=== PATIENT | male | born 1950 | race Caucasian/White ===

== ENCOUNTER 2020-09-07 08:06 | Outpatient (REF) | payer MEDICARE, OTHER, SELFPAY ==
--- NOTE | 2020-09-07 | PFT_ITS ---
FLOWS: FEV1 40% of predicted at 1.30 L. FVC 75% of predicted at 3.32 L. FEV1 to FVC ratio of 0.39. Positive bronchodilator response. LUNG VOLUMES: Total lung capacity 87% of predicted at 6.13 L. Residual volume 127% of predicted at 3.13 L. Slow vital capacity 65% of predicted at 3 L. Expiratory reserve volume 76% of predicted at 0.98 L. Diffusion capacity is very severely decreased, diffusion capacity adjusts to being severely decreased after correction for alveolar ventilation. In comparison to pulmonary function test performed in March of 2014, FEV1 has decreased by 0.27 L; FVC has been without significant changes; total lung capacity has increased by 0.80 L; residual volume has increased by 0.74 L; slow vital capacity has been without significant changes; expiratory reserve volume has increased by 0.27 L; diffusion capacity is decreased by 5.31 mL/minute per mmHg. IMPRESSION: Severe to very severe obstructive ventilatory defect with positive bronchodilator response. Increased residual volume suggests air trapping. Decreased diffusion capacity suggests emphysema. MD MARCIN Morales/MODL / [id number] MTDD
== END 2020-09-07 08:07 | disposition home or self-care (01) ==
LOC: HO.RESP 08:06
PROVIDERS: PCP Internal Medicine; Visit Provider Internal Medicine
DX: J44.9 Chronic obstructive pulmonary disease, unspecified (principal); R06.00 Dyspnea, unspecified
CPT/HCPCS: 94060; 94727; 94729; 99211

== ENCOUNTER → 2020-09-10 08:41 | Outpatient (BNVA) | payer MEDICARE, OTHER, SELFPAY | PROVIDERS: PCP Internal Medicine; Visit Provider Internal Medicine | DX: J44.9 Chronic obstructive pulmonary disease, unspecified (principal); R09.02 Hypoxemia; Z79.899 Other long term (current) drug therapy; Z99.81 Dependence on supplemental oxygen | CPT/HCPCS: 99213 ==

== ENCOUNTER → 2020-10-09 10:33 | Outpatient (BNVA) | payer MEDICARE, OTHER, SELFPAY | PROVIDERS: PCP Internal Medicine; Visit Provider Internal Medicine | DX: J44.9 Chronic obstructive pulmonary disease, unspecified (principal); R09.02 Hypoxemia; Z99.81 Dependence on supplemental oxygen; Z79.899 Other long term (current) drug therapy | CPT/HCPCS: 99212 ==

== ENCOUNTER → 2021-02-12 13:18 | Outpatient (BNVA) | payer MEDICARE, OTHER, SELFPAY | PROVIDERS: PCP Internal Medicine; Visit Provider Internal Medicine | DX: J44.9 Chronic obstructive pulmonary disease, unspecified (principal); R09.02 Hypoxemia; Z99.81 Dependence on supplemental oxygen; Z87.891 Personal history of nicotine dependence; Z79.899 Other long term (current) drug therapy | CPT/HCPCS: 99212 ==

== ENCOUNTER → 2021-06-13 13:25 | Outpatient (BNVA) | payer MEDICARE, OTHER, SELFPAY | PROVIDERS: PCP Internal Medicine; Visit Provider Internal Medicine | DX: J44.9 Chronic obstructive pulmonary disease, unspecified (principal); R09.02 Hypoxemia; Z99.81 Dependence on supplemental oxygen; Z79.899 Other long term (current) drug therapy | CPT/HCPCS: 99212 ==

== ENCOUNTER → 2021-10-10 13:10 | Outpatient (BNVA) | payer MEDICARE, OTHER, SELFPAY | PROVIDERS: PCP Internal Medicine; Visit Provider Internal Medicine | DX: J44.9 Chronic obstructive pulmonary disease, unspecified (principal); R09.02 Hypoxemia; Z99.81 Dependence on supplemental oxygen; Z79.899 Other long term (current) drug therapy | CPT/HCPCS: 99212 ==

== ENCOUNTER → 2022-02-06 13:20 | Outpatient (BNVA) | payer MEDICARE, OTHER, SELFPAY | PROVIDERS: PCP Internal Medicine; Visit Provider Internal Medicine | DX: J44.9 Chronic obstructive pulmonary disease, unspecified (principal); R09.02 Hypoxemia; Z99.81 Dependence on supplemental oxygen | CPT/HCPCS: 99212 ==

== ENCOUNTER 2022-04-23 05:58 | Inpatient (IN) | payer MEDICARE, OTHER, SELFPAY ==
[2022-04-23] VITALS (11 sets, daily range): BP systolic 121–152; BP diastolic 60–89; PULSE 90–103; RESP 18–25; TEMP 36.7–37.1; O2SAT 89–97; BMI 25.1
--- NOTE | 2022-04-23 | ECG_ITS ---
Test Reason : SOB Blood Pressure : / mmHG Vent. Rate : 091 BPM Atrial Rate : 091 BPM P-R Int : 158 ms QRS Dur : 152 ms QT Int : 374 ms P-R-T Axes : 072 257 -06 degrees QTc Int : 460 ms Sinus rhythm with occasional Premature ventricular complexes Right bundle branch block Septal infarct (cited on or before 23-APR-2022) Abnormal ECG When compared with ECG of 23-APR-2022 06:22, Serial changes of Septal infarct Present Referred By: Edson Swanson Electronically Signed By:ZOFIA MINOR MD
--- NOTE | ~2022-04-23 | CT_ITS ---
EXAMINATION: CT CHEST WITHOUT CONTRAST CLINICAL INFORMATION: COPD exacerbation. COMPARISON: Chest radiograph 04/23/2022. CT from 03/28/2014. TECHNIQUE: Multidetector volumetric CT imaging of the chest was done. Axial MIP volume rendering provided. Sagittal and coronal reformatted images were obtained. This CT examination was performed using dose optimization techniques as appropriate, variously including the following: *Automated exposure control *Adjustment of mA and/or kV according to patient size (this includes techniques or standardized protocols for targeted exams where dose is matched to indication/reason for exam; i.e. extremities or head) *Use of iterative reconstruction technique DLP: 154 mGy-cm FINDINGS: INSTRUMENT OPERATOR: Unremarkable. LUNGS: The central airways are patent. Moderate centrilobular and paraseptal emphysema. Minimal scarring at the right apex noted. Bronchial wall thickening noted at the lung bases with minimal opacity dependently in the right lower lobe near the costophrenic angle. Minimal dependent left basilar atelectasis. MEDIASTINUM: Normal heart size. Coronary artery calcifications. No pericardial effusion. No mediastinal lymphadenopathy. PLEURA: There is no pleural effusion. No pleural mass or thickening. No pneumothorax. AXILLA: No lymphadenopathy. UPPER ABDOMEN: No acute abnormality. Calcifications throughout the pancreatic parenchyma, likely the sequela of chronic pancreatitis. OSSEOUS STRUCTURES: No acute or suspicious osseous abnormality. Degenerative changes noted throughout the spine. CT/CT chest wo con IMPRESSION: Moderate emphysema. Bronchial wall thickening noted at the lung bases which could be associated with acute or chronic bronchitis. There is minimal associated consolidation dependently in the right lower lobe. This is nonspecific. This could be atelectasis or pneumonia. Fleischner guidelines were followed.
--- NOTE | ~2022-04-23 | XR_ITS ---
EXAMINATION: XR CHEST CLINICAL INFORMATION: Shortness of breath COMPARISON: 12/29/2013 chest x-ray TECHNIQUE: 2 frontal views of the chest was obtained. FINDINGS: The lungs are symmetric expanded. Mild peribronchial thickening in bilateral lower lungs. No focal consolidation is otherwise seen. No effusion, edema or pneumothorax. Cardiomediastinal contours within normal limits. No acute osseous abnormality seen. XR/XR chest 1V IMPRESSION: No acute pulmonary disease. IMPRESSION: Mild peribronchial thickening in bilateral lower lungs. This could reflect infectious or inflammatory process. No dense consolidation is seen.
--- NOTE | 2022-04-23 06:09 | ECG_ITS ---
Test Reason : SOB Blood Pressure : / mmHG Vent. Rate : 095 BPM Atrial Rate : 095 BPM P-R Int : 156 ms QRS Dur : 152 ms QT Int : 372 ms P-R-T Axes : 077 260 003 degrees QTc Int : 467 ms Sinus rhythm with frequent Premature ventricular complexes Right bundle branch block Septal infarct , age undetermined Abnormal ECG When compared with ECG of 29-DEC-2013 05:03, Premature ventricular complexes are now Present QRS duration has increased Septal infarct is now Present ST now depressed in Anterior leads T wave inversion now evident in Anterior leads Referred By: Le Azar Electronically Signed By:ZOFIA MINOR MD
--- NOTE | 2022-04-23 06:28 | ED_ITS ---
HPI - SOB/Dyspnea General Chief Complaint: Dyspnea Stated Complaint: SOB, 85% PER EMS Time Seen by Provider: 04/23/22 06:08 Source: patient Mode of arrival: EMS History of Present Illness HPI Narrative: 72-year-old male with history of COPD and only uses oxygen as needed states that he had a cough and runny nose yesterday and then became increasingly short of breath throughout the night. He otherwise denies any fever, chills, chest amrk anthony n/palpitations. Patient received a DuoNeb and Solu-Medrol in route. Related Data Home Medications Medication Instructions Recorded Confirmed amlodipine 10 mg-benazepril 40 mg 1 cap PO DAILY 09/10/20 capsule atenolol 100 mg tablet 100 mg PO DAILY 09/10/20 atorvastatin 20 mg tablet 20 mg PO DAILY 09/10/20 sildenafil 50 mg tablet mg PO 09/10/20 Previous Rx's Medication Instructions Recorded fluticasone propionate 230 2 puff INHALATION BID #12 g 06/25/21 mcg-salmeterol 21 mcg/actuation HFA inhaler (Advair HFA) tiotropium bromide 2.5 2 puff INHALATION QAM #12 g 08/21/21 mcg/actuation mist for inhalation (Spiriva Respimat) ipratropium 20 mcg-albuterol 100 1 puff INHALATION QID 90 Days #4 g 11/07/21 mcg/actuation mist for inhalation (Combivent Respimat) Allergies Allergy/AdvReac Type Severity Reaction Status Date / Time No Known Allergies Allergy Mild NOT Verified 02/06/22 13:45 APPLICABLE Review of Systems Review of Systems: Pertinent positives and negatives as stated in HPI 10 point review of systems is otherwise negative. [facility] Past Medical History Source: nursing notes reviewed Medical History COPD (chronic obstructive pulmonary disease) Hypoxemia requiring supplemental oxygen Physical Exam Vital Signs: Vital Signs: Last Vital Signs Temp 98.7 F 04/23/22 06:05 Pulse 103 H 04/23/22 06:05 Resp 22 H 04/23/22 06:05 BP 152/89 H 04/23/22 06:05 Pulse Ox 90 L 04/23/22 06:05 Oxygen Flow Rate 6 04/23/22 06:05 BMI result Body Mass Index 25.1 VITAL SIGNS: Reviewed. GENERAL: Well developed, well nourished, in no acute distress. HEAD: Normocephalic/atraumatic EYES: PERRLA, EOMI EARS: Ext canals without abnormality OROPHARYNX: no oral lesions noted, posterior pharynx clear LUNGS: Decreased breath sounds, tachypnea, trace rhonchi throughout. SpO2<90> on 2 L CARDIOVASCULAR: Regular rate and rhythm without noted murmurs, no JVD but mild bilateral lower extremity 1+ pitting edema ABDOMEN: Soft, non-tender, non-distended with bowel sounds. MUSCULOSKELETAL: No tenderness, deformities, or effusions noted on gross inspection. EXTREMITIES: No cyanosis, clubbing or edema. SKIN: Inspection of the skin reveals no rashes NEUROLOGIC: Alert and oriented x 4. Strength and sensation to light touch were grossly intact x 4. Course Course Course Narrative: 72-year-old male with history and clinical presentation most consistent with COPD exacerbation and less likely CHF, pneumonia. Signed out to Dr Hamilton: f/u labs, swabs, CXR MDM - SOB/Dyspnea ECG Data Attestation: I personally reviewed and interpreted this ECG as follows: Prior ECG tracings: not available for review Interpretation: SR with frequent PVCs and RBBB, HR-95, no STEMI, ND/QTC are within normal limits Discharge Plan Discharge Clinical Impression: Shortness of breath Patient Disposition: Still a Patient Prescriptions: No Action Advair HFA 230-21 mcg/actuation HFA aerosol inhaler 2 puff inhalation BID Qty: 12 11RF Spiriva Respimat 2.5 mcg/actuation mist 2 puff inhalation QAM Qty: 12 3RF Combivent Respimat 20-100 mcg/actuation mist 1 puff inhalation QID 90 Days Qty: 4 3RF Rx Instructions: space evenly during waking hours amlodipine-benazepril 10-40 mg capsule 1 cap PO DAILY 0RF atenolol 100 mg tablet 100 mg PO DAILY 0RF atorvastatin 20 mg tablet 20 mg PO DAILY 0RF sildenafil 50 mg tablet PO 0RF
[2022-04-23] MEDS: Albuterol Sulfate (0.083%) 2.5 MG/3 ML VIAL.NEB 10 MG INHALE (06:33)
[2022-04-23 06:57] LABS: VBG Base Excess -1.9 mmol/L; VBG HCO3 22 mmol/L (22-26); VBG pCO2 37 mmHg; VBG pH 7.38 (7.32-7.43); VBG pO2 102 mmHg
[2022-04-23 06:57] LABS: MANUAL DIFF FLAG NO
[2022-04-23 06:58] LABS: Venous Blood Gas Refer to POC result
[2022-04-23 06:59] LABS: Basophils Absolute Auto 0.1 X10*3/uL (0.0-0.2); Basophils Percent Auto 0.3 % (0-2); Eosinophils Absolute Auto 0.1 X10*3/uL (0.0-0.4); Eosinophils Percent Auto 0.3 % (0-4); Hematocrit 41.9 % (42.0-52.0); Hemoglobin 13.9 g/dl (14.0-18.0); Imm Gran Pct Auto 0.6 % (0.0-0.4); Lymphocytes Absolute Auto 1.4 X10*3/uL (1.2-4.9); Lymphocytes Percent Auto 7.9 % (20-40); Mean Corpuscular HGB Conc 33.2 g/dl (31.0-36.0); Mean Corpuscular Hemoglobin 29.6 pg (27.0-33.0); Mean Corpuscular Volume 89.1 fL (80.0-98.0); Mean Platelet Volume 9.5 fL (9.4-12.4); Monocytes Absolute Auto 1.2 X10*3/uL (0.1-1.2); Monocytes Percent Auto 6.8 % (2-11); Neutrophils Absolute Auto 14.7 x10*3/uL (2.0-8.3); Neutrophils Percent Auto 84.1 % (45-73); Platelet Count 241 X10*3/uL (160-400); Red Cell Distribution Width 14.8 % (11.0-16.0); White Blood Count 17.5 X10*3/uL (4.8-10.8)
[2022-04-23 07:04] LABS: INTERNATIONAL NORM RATIO 1.1 (0.9-1.1); Prothrombin Time 12.6 SEC (9.9-13.0)
[2022-04-23 07:10] LABS: Lactic Acid 0.9 mmol/L (0.5-2.0)
[2022-04-23 07:14] LABS: COVID-19 Test Negative (Negative); IDNOW Serial# 16C4AD1C; Influenza A Negative (Negative); Influenza B2 Negative (Negative)
[2022-04-23 07:20] LABS: B Type Natriuretic Peptide 108 pg/mL (<100); Troponin-I High Sensitivity 3.6 ng/L (<3.5-35.0)
[2022-04-23 08:20] LABS: Alanine Aminotransferase 17 U/L (0-40); Albumin Level 4.1 g/dL (3.5-5.0); Alkaline Phosphatase 106 U/L (39-117); Anion Gap 13 (12-20); Aspartate Amino Transferase 15 U/L (5-37); Bilirubin Total 0.4 mg/dL (0.0-1.0); Blood Urea Nitrogen 12 mg/dL (9-16); Calcium 9.4 mg/dL (8.4-10.2); Carbon Dioxide 23 mmol/L (22-29); Chloride 108 mmol/L (96-108); Creatinine Clr Calc Pharmacy 99.9; Estimated Glomerular Filt Rate > 60; Glucose Random 135 mg/dL (60-115); Sodium 140 mmol/L (135-145); Total Protein 6.6 g/dL (6.5-8.0)
[2022-04-23] MEDS: Albuterol/Iprat 2.5/0.5MG 3 ML AMPUL.NEB INHALE ×4 (10:31→21:17)
--- NOTE | 2022-04-23 11:20 | PHA.MEDREC ---
Pharmacy Consult ? Medication Reconciliation Pharmacy has completed the medication reconciliation. Patient confirmed all medications. Natalie Hoyt, BerkleyD
[2022-04-23] MEDS: cefTRIAXone sodium 1 GM in 0.9 % Sodium Chloride 50 ML IV (11:34)
--- NOTE | 2022-04-23 11:36 | PM.IMHP ---
History of Present Illness Date of Service: 04/23/22 Chief Complaint: shortness of breath, cough, hypoxia, rhinorrhea This is a 72 yo M with a PMH of COPD, chronic respiratory failure with hypoxia (on 2L with exertion, no oxygen at rest), prior NE, who presents to [facility] today with complaints of respiratory symptoms of 1 day duration. The patient reports that 2 days prior to admission, he was in his usual state of health. One day [employer], he began having rhinorrhea and a non-productive cough. Later the same day, he noticed increased shortness of breath -- initially with exertion and subsequently even at rest. He planned on sleeping through the night and re-evaluating his condition the next day, however, over night his shortness of breath increased. He has a pulse ox at home and this showed a value of 85% with his 2L of oxygen on and so he decided to call EMS. He reported no sick contacts. He reports no anginal chest pain. He denies fevers or chills. He reports quitting smoking in his 50s. He reports being vaccinated for COVID with mRNA vaccine (including 2 boosters). He was given Solu-Medrol and DuoNebs in route to the ED. Upon arrival to the ED, he was found to be tachycardic and tachypneic. He had increased work of breathing. He was given an additional 1 hour long neb with basically no improvement in his respiratory status. The remainder of his work up revealed Leukocytosis of 17, CXR with mild peribronchial thickening in the b/l lower lung zones. His EKG showed showed multiple abnormalities (new from prior EKG, but last one was in 2013) with a negative HS trop-I. Despite the above treatment, the patient continued to hypoxic along with respiratory symptoms. He will be admitted for further treatment. Review of Systems Review of Systems: negative except HPI [facility] Medical History (Updated 04/23/22 @ 11:52 by Edson Swanson MD) COPD (chronic obstructive pulmonary disease) Hypoxemia requiring supplemental oxygen Myocardial infarct Pertinent family history: CAD / lung problems in father Surgical History (Updated 04/23/22 @ 11:43 by Edson Swanson MD) History of appendectomy Social History (Updated 04/23/22 @ 11:44 by Edson Swanson MD) Patient Tobacco Use Status: Former Tobacco user Use of substances other than those prescribed or required for medical reasons: No Advance Directives: No Meds Allergies Allergy/AdvReac Type Severity Reaction Status Date / Time No Known Allergies Allergy Mild NOT Verified 02/06/22 13:45 APPLICABLE Active Medications: Current Medications Acetaminophen (Acetaminophen 325 Mg Tablet) 650 mg PO Q6H PRN PRN Reason: Pain, Mild (Pain Scale 1-3) Albuterol Sulfate (Albuterol Sulfate (0.083%) 2.5 Mg/3 Ml Vial.Neb) 2.5 mg INHALE Q3H PRN PRN Reason: Shortness of Breath/Wheezing Albuterol/Ipratropium (Albuterol/Iprat 2.5/0.5mg 3 Ml Ampul.Neb) 3 ml INHALE RQ4H WHILE AWAKE ALBINA Doxycycline Hyclate (Doxycycline Hyclate 100 Mg Tablet) 100 mg PO Q12H [place]BINA Enoxaparin Sodium (Enoxaparin Sodium 40 Mg/0.4 Ml Syringe) 40 mg SUBCUT Q24H ALBINA Azithromycin 500 mg/ Sodium (Chloride) 250 mls @ 125 mls/hr IV ONCE ONE Stop: 04/23/22 12:22 Methylprednisolone Sodium Succinate (Methylprednisolone Sod Succ 40 Mg/Ml Vial) 40 mg IVPUSH Q8H [place]BINA Ondansetron HCl (Ondansetron Hcl 4 Mg/2 Ml Vial) 4 mg IVPUSH Q8H PRN PRN Reason: Nausea and Vomiting Pharmacy Consult (Consult Rx Perform Med Rec) 1 each MISCELLANE ONCE PRN PRN Reason: Consult order Sodium Chloride (0.9 % Sodium Chloride Flush 3 Ml Syringe) 3 ml IVFLUSH QSHIFT [facility] Home Medications Medication Instructions Recorded Confirmed Last Taken Type amlodipine 10 mg-benazepril 40 mg 1 cap PO BEDTIME 09/10/20 04/23/22 04/22/22 History capsule atenolol 100 mg tablet 100 mg PO BEDTIME 09/10/20 04/23/22 04/22/22 History atorvastatin 20 mg tablet 20 mg PO BEDTIME 09/10/20 04/23/22 04/22/22 History sildenafil 50 mg tablet 50 mg PO DAILY PRN 09/10/20 04/23/22 04/22/22 History ipratropium 20 mcg-albuterol 100 1 puff INHALATION QID PRN 04/23/22 04/23/22 04/22/22 History mcg/actuation mist for inhalation (Combivent Respimat) tiotropium bromide 2.5 2 puff INHALATION DAILY 04/23/22 04/23/22 04/22/22 History mcg/actuation mist for inhalation (Spiriva Respimat) Physical Exam Vital Signs and Narrative: Vital Signs: Last Vital Signs Temp 98.7 F 04/23/22 06:05 Pulse 94 04/23/22 10:32 Resp 20 04/23/22 10:32 BP 136/65 04/23/22 08:48 Pulse Ox 91 L 04/23/22 08:48 Oxygen Flow Rate 6 04/23/22 06:05 BMI result Body Mass Index 25.1 Const: Other: Constitutional - Awake and Alert, No apparent distress at rest; SpO2 87-90% on 4L Eyes - PERRLA, EOMI Cardiovascular - S1S2, RRR, No edema Respiratory - poor air entry bilaterally; no accessory muscle usage at rest Gastrointestinal - NT / ND; +BS; No rebound or guarding - No CVA tenderness Extremities - no calf tenderness bilaterally, no swelling Musculoskeletal - Normal inspection, normal ROM Skin - Warm/Dry Neurological - Alert & oriented x3, No focal deficit Psychological - Appropriate affect Results Labs CBC and Chem 7: 04/23/22 06:46 04/23/22 06:46 Labs: Laboratory Results - last 24 hr 04/23/22 04/23/22 04/23/22 06:46 06:46 06:46 MCV 89.1 MCH 29.6 MCHC 33.2 RDW 14.8 Plt Count 241 MPV 9.5 Immature Gran % (Auto) 0.6 H Neut % (Auto) 84.1 H Lymph % (Auto) 7.9 L Ritchie % (Auto) 6.8 Eos % (Auto) 0.3 Baso % (Auto) 0.3 Lymph # (Auto) 1.4 Ritchie # (Auto) 1.2 Eos # (Auto) 0.1 Baso # (Auto) 0.1 Abs Immat Gran (auto) 0.10 H Absolute Neuts (auto) 14.7 H Absolute Nucleated RBC 0.000 Nucleated RBC % (auto) 0.0 PT INR VBG pH VBG pCO2 VBG pO2 VBG HCO3 VBG O2 Saturation VBG Base Excess Anion Gap 13 Estim Creat Clear Calc 99.9 Estimated GFR > 60 Random Glucose 135 H Lactic Acid Calcium 9.4 Total Bilirubin 0.4 AST 15 ALT 17 Alkaline Phosphatase 106 Troponin I High Sens B-Natriuretic Peptide 108 H Total Protein 6.6 Albumin 4.1 COVID-19 (FAY) COVID-19 Clin Com Influenza Type A (ROMMEL) Influenza Type B (ROMMEL) Influenza A & B Note 04/23/22 04/23/22 04/23/22 06:46 06:46 06:46 MCV MCH MCHC RDW Plt Count MPV Immature Gran % (Auto) Neut % (Auto) Lymph % (Auto) Ritchie % (Auto) Eos % (Auto) Baso % (Auto) Lymph # (Auto) Ritchie # (Auto) Eos # (Auto) Baso # (Auto) Abs Immat Gran (auto) Absolute Neuts (auto) Absolute Nucleated RBC Nucleated RBC % (auto) PT 12.6 INR 1.1 VBG pH VBG pCO2 VBG pO2 VBG HCO3 VBG O2 Saturation VBG Base Excess Anion Gap Estim Creat Clear Calc Estimated GFR Random Glucose Lactic Acid Calcium Total Bilirubin AST ALT Alkaline Phosphatase Troponin I High Sens 3.6 B-Natriuretic Peptide Total Protein Albumin COVID-19 (FAY) COVID-BlazeMeter Clin Com Influenza Type A (ROMMEL) Negative Influenza Type B (ROMMEL) Negative Influenza A & B Note See Note 04/23/22 04/23/22 04/23/22 06:46 06:47 06:48 MCV MCH MCHC RDW Plt Count MPV Immature Gran % (Auto) Neut % (Auto) Lymph % (Auto) Ritchie % (Auto) Eos % (Auto) Baso % (Auto) Lymph # (Auto) Ritchie # (Auto) Eos # (Auto) Baso # (Auto) Abs Immat Gran (auto) Absolute Neuts (auto) Absolute Nucleated RBC Nucleated RBC % (auto) PT INR VBG pH 7.38 VBG pCO2 37 VBG pO2 102 VBG HCO3 22 VBG O2 Saturation 98.0 VBG Base Excess -1.9 Anion Gap Estim Creat Clear Calc Estimated GFR Random Glucose Lactic Acid 0.9 Calcium Total Bilirubin AST ALT Alkaline Phosphatase Troponin I High Sens B-Natriuretic Peptide Total Protein Albumin COVID-19 (FAY) Negative COVID-19 Clin Com See Note Influenza Type A (ROMMEL) Influenza Type B (ROMMEL) Influenza A & B Note Imaging Radiologist's Impressions: Impressions Chest X-Ray 04/23/22 07:00 IMPRESSION: No acute pulmonary disease. IMPRESSION: Mild peribronchial thickening in bilateral lower lungs. This could reflect infectious or inflammatory process. No dense consolidation is seen. Assessment and Plan (1) Acute respiratory failure with hypoxia: Status: Acute Plan This is a 72 yo M with a PMH of COPD, Chronic resp. failure with hypoxia (on 2L with exertion), prior NE without stenting who presents to the ED with complaints of rhinorrhea, non-productive cough, hypoxia and shortness of breath of 1 day duration. His work up is most consistent with acute exacerbation of COPD secondary to viral / bacterial bronchitis causing acute on chronic resp. failure with hypoxia. He will be admitted for further treatment. 1. Acute Respiratory failure with hypoxia 1a. Acute excerbation of COPD 1a. Possible viral / bacterial bronchitis Baseline O2 = 2L with exertion; currently requiring 4L at rest No evidence of pneumonia on chest imaging; DuoNebs scheduled + PRN; IV solu-medrol; supplemental O2 to keep saturation around 90% -- do not over oxygenate Empiric doxycycline. The patient does not have severe sepsis at this time 2. Abnormal EKG Previous EKG in system in 2013 -- so unclear if these are truly new changes HS trop-I negative x 1; will repeat now; repeat EKG as well keep telmonitor for now 3. CAD - s/p NE (without stenting) on BB + statin; not on asa EKG as above 4. HTN BP on the softer side -- hold antihypertensives today and re-eval tomorrow Full Code DVT pptx, Lovenox Endorses his as HCP In light of his acute on chronic respiratory failure + COPD exacerbation -- I anticipate a medically necessary inpatient hospitalization for treatment and monitoring of response which is likely to span 2 midnights. This cannot be completed in a less acute setting. Quality Stroke Does the patient have a stroke diagnosis?: No VTE Prior VTE?: No VTE Risk Level:: Medical - moderate - high VTE Device Contraindication: Treatment Not Indicated VTE Drug Contraindication: N/A - Med Ordered
[2022-04-23] MEDS: Enoxaparin Sodium 40 MG/0.4 ML SYRINGE SUBCUT (12:45)
[2022-04-23] MEDS: Azithromycin 500 MG in 0.9 % Sodium Chloride 250 ML 125 MG IV (12:46)
[2022-04-23] MEDS: methylPREDNISolone Sod Succ 40 MG/ML VIAL IVPUSH ×2 (12:46→19:45)
[2022-04-23 13:00] LABS: Troponin-I High Sensitivity 3.6 ng/L (<3.5-35.0)
--- NOTE | 2022-04-23 19:38 | PC.NURSE ---
pt antibiotics were infused, and taken down when this RN assumed care of pt
[2022-04-23] MEDS: Atorvastatin Calcium 20 MG TABLET PO (19:45)
--- NOTE | 2022-04-23 22:18 | MHC.CM.PN ---
IMM 04/23. A&Ox4. No HCP. HCP reviewed, completed and signed. Copies given. Uploaded into [facility] and [email or web address]. HCP/ Zelda Stauffer ([phone]). Vax/boosted/Moderna (12/23/20, 01/21/21, 09/24/21, 02/26/22). Lives w . Uses Oxygen@2L prn. No other DME/services. [place] of 21 years service. Uses [facility] pharmacy only. Not vet connected. D/C plan: Home without services. Pt to arrange transportation home. CM to follow for d/c needs.
[2022-04-24] VITALS (11 sets, daily range): BP systolic 124–150; BP diastolic 66–81; PULSE 10–110; RESP 16–20; TEMP 36.3–37.1; O2SAT 91–98; BMI 24.2
[2022-04-24] MEDS: methylPREDNISolone Sod Succ 40 MG/ML VIAL IVPUSH ×3 (05:01→21:05)
[2022-04-24 06:52] LABS: Hematocrit 41.5 % (42.0-52.0); Hemoglobin 13.7 g/dl (14.0-18.0); Mean Corpuscular Hemoglobin 29.7 pg (27.0-33.0); Mean Platelet Volume 10.2 fL (9.4-12.4); Platelet Count 245 X10*3/uL (160-400); Red Blood Count 4.61 X10*6/uL (4.60-5.80); Red Cell Distribution Width 15.1 % (11.0-16.0); White Blood Count 23.4 X10*3/uL (4.8-10.8)
--- NOTE | 2022-04-24 07:00 | CA_ITS ---
Transthoracic Echocardiogram Patient (Last, First, Middle): Sergio Stauffer, Gender: Male Date of : 1950 Age: 72 Procedure Date: 04/24/2022 Procedure Type: Transthoracic Echocardiogram Location: [facility] [place] Height: 177.8 cm Weight: 76.2 kg BSA: 1.94 m2 Heart Rate: bpm BP: 129 / 71 mmHg Derrick Engineer: TO/YR Referring MD: Edson Swanson MD Salesperson Books: Nael Sylvester MD Symptoms: abnormal EKG with evidence of septal infarct Study Quality: Technically Difficult ECG Rhythm: Sinus Conclusions: - 1. Normal LV systolic function with grade 1 diastolic dysfunction 2. Mildly dilated left atrium 3. Normal cardiac valvular Doppler 4. Moderately elevated right ventricular systolic pressure 5. No gross pericardial effusion Findings Left Ventricle Normal left ventricular size, thickness, and systolic function. The visually estimated ejection fraction is between 60-65%. Spectral Doppler is indicative of an impaired relaxation filling pattern. E/E prime ratio is <8, consistent with normal filling pressures. Right Ventricle Mildly increased right ventricular cavity size. There is normal right ventricular systolic function. Atria The left atrium is mildly dilated. There is lipomatous hypertrophy of the interatrial septum. There is no evidence of interatrial shunt. The right atrium is normal in size. Aortic Valve There is mild calcification of the aortic valve. There is mild thickening of the aortic valve. There is no aortic valve stenosis. There is no aortic valve regurgitation. Mitral Valve There is mild anterior and posterior mitral leaflet thickening. There is trace mitral valve regurgitation. There is no mitral valve stenosis. Pulmonic Valve The pulmonic valve was not well visualized. Tricuspid Valve Likely normal tricuspid valve structure and function. There is mild tricuspid valve regurgitation. The right ventricular systolic pressure is normal. Normal right atrial pressure. Moderate pulmonary hypertension is present. Great Vessels All visible segments of the aorta are normal in size. The pulmonary artery was not well visualized. Venous The inferior vena cava is normal in size and collapses greater than 50% with inspiration. Pericardium/Pleural There is no evidence of pericardial effusion. Prior Study Comparison no previous study in the last 5 years for comparison Measurements 2D Linear Measurements IVSd: 1.26 0.6-0.9/0.6-1.0 cm LVIDd: 5.02 3.9-5.3/4.2-5.9 cm LVIDd Index: 2.59 2.4-3.2/2.2-3.1 cm/m2 LVIDs: 3.40 2.0-3.6 cm LVPWd: 0.96 0.7-1.1 cm LA Diam: 2.90 2.7-3.8/3.0-4.0 cm LAIDs Index: 1.49 1.5-2.3 cm/m2 LV Mass: 263.28 67-162/88-224 g LV Mass Index: 135.71 43-95/49-115 g/m2 LVOT Diam: 2.30 3.0+(-)1.3 cm 2D Systolic Function EF 4C: 70.70 >55% EF 2C: 60.60 >55% EF BiP: 65.00 >55% Mitral Valve MV Pk E: 0.83 MV PK A: 1.39 MV Decel Time: 139.00 E/A: 0.60 E'Lateral: 11.60 E'Medial: 9.25 E/E' Med: 8.90 E/E' Lat: 7.10 PHT: 41.00 MVA PHT: 5.37 Decel [place]: 5.95 Aortic Valve AoV Pk Joey: 1.52 AoV Mn Joey: 0.97 AoV VTI: 0.26 AoV Pk Grad: 9.00 Aov Mn Grad: 4.00 AMBER Cont.VTI: 3.37 LVOT LVOT Pk Joey: 1.18 LVOT Mn Joey: 0.74 LVOT VTI: 0.21 LVOT Pk Grad: 6.00 LVOT Mn Grad: 3.00 LVOT Diam: 2.30 LVOT Area: 4.15 Diastolic Function MV Pk E: 0.83 MV Pk A: 1.39 E/A: 0.60 E'Medial: 9.25 E/E' Med: 8.90 E' Laterial: 11.60 E/E' Lat: 7.10 Right Ventricle TAPSE (mm): 22.10 TVS' Joey: 12.70 Tricuspid Valve TR Pk Joey: 3.39 TR Pk Grad: 46.00 RA Press: 3.00 RVSP: 49.00 Great Vessels Aorta Sinus of Valsalva: 3.98 2.0-3.[address] [place]: 3.07 1.7-3.4 cm Ao Asc: 3.40 2.1-3.4 cm Updated in Other Vendor System with Status of Final Nael Sylvester MD electronically signed on 04/24/2022 5:02:17 PM with status of Final
[2022-04-24 07:05] LABS: Anion Gap 13 (12-20); Blood Urea Nitrogen 12 mg/dL (9-16); Calcium 9.7 mg/dL (8.4-10.2); Carbon Dioxide 24 mmol/L (22-29); Chloride 108 mmol/L (96-108); Creatinine Clr Calc Pharmacy 107.7; Estimated Glomerular Filt Rate > 60; Glucose Random 134 mg/dL (60-115); Sodium 141 mmol/L (135-145)
[2022-04-24] MEDS: 0.9 % Sodium Chloride Flush 3 ML SYRINGE IVFLUSH ×2 (07:41→21:07)
[2022-04-24] MEDS: Albuterol/Iprat 2.5/0.5MG 3 ML AMPUL.NEB INHALE ×4 (08:12→20:19)
[2022-04-24] MEDS: Enoxaparin Sodium 40 MG/0.4 ML SYRINGE SUBCUT (11:32)
--- NOTE | 2022-04-24 12:17 | HO.PM.IMPN ---
Subjective Subjective Date of Service: 04/24/22 Interval History: seen and examined this morning follow up for COPD exacerbation/SOB, still reporting some sob. no significant cough no fever, chills, or recent sick contacts; denies chest pain Review of Systems Review of Systems: Yes all other systems are reviewed and are negative Constitutional Constitutional: Denies chills and Denies fever(s) Cardiovascular Cardiovascular: Denies chest pain, Denies palpitations and Reports dyspnea Respiratory Respiratory: Reports dyspnea Gastrointestinal Gastrointestinal: Denies abdominal pain, Denies nausea and Denies vomiting Endocrine Endocrine: Denies palpitations Physical Exam Vital Signs: Vital Signs: Last Vital Signs Temp 97.4 F 04/24/22 11:18 Pulse 110 H 04/24/22 11:21 Resp 20 04/24/22 11:21 BP 150/81 H 04/24/22 11:18 Pulse Ox 92 04/24/22 11:18 Oxygen Flow Rate 6 04/23/22 06:05 BMI result Body Mass Index 24.2 Const: General: cooperative, comfortable, alert and awake Nutritional Appearance: average body habitus Orientation/consciousness: patient oriented x3 Eyes: Pupils: Equal, round and reactive pupils present EOM: EOMs intact bilaterally Resp: Effort & Inspection: normal respiratory effort Auscultation: clear to auscultation bilaterally, no rales, no wheezes and diminished lung sounds Cardio: Rate: regular rate Heart sounds: S1 normal heart sound present and S2 normal heart sound present GI: Inspection: No distended Palpation (GI): nontender Neuro: General: patient oriented x3 Cranial nerves: Yes Equal, round and reactive pupils present Extrem: General: Yes no pedal edema Objective Data Active Medications Acetaminophen (Acetaminophen 325 Mg Tablet) 650 mg PO Q6H PRN PRN Reason: Pain, Mild (Pain Scale 1-3) Albuterol Sulfate (Albuterol Sulfate (0.083%) 2.5 Mg/3 Ml Vial.Neb) 2.5 mg INHALE Q3H PRN PRN Reason: Shortness of Breath/Wheezing Albuterol/Ipratropium (Albuterol/Iprat 2.5/0.5mg 3 Ml Ampul.Neb) 3 ml INHALE RQ4H WHILE AWAKE [facility] Last Admin: 04/24/22 11:17 Dose: 3 ml Documented by: HUDSON Atorvastatin Calcium (Atorvastatin Calcium 20 Mg Tablet) 20 mg PO BEDTIME [facility] Last Admin: 04/23/22 19:45 Dose: 20 mg Documented by: WHIT Doxycycline Hyclate (Doxycycline Hyclate 100 Mg Tablet) 100 mg PO Q12H [facility] Last Admin: 04/24/22 07:41 Dose: 100 mg Documented by: SURESH Enoxaparin Sodium (Enoxaparin Sodium 40 Mg/0.4 Ml Syringe) 40 mg SUBCUT Q24H [facility] Last Admin: 04/24/22 11:32 Dose: 40 mg Documented by: SURESH Methylprednisolone Sodium Succinate (Methylprednisolone Sod Succ 40 Mg/Ml Vial) 40 mg IVPUSH Q8H [facility] Last Admin: 04/24/22 11:29 Dose: 40 mg Documented by: SURESH Ondansetron HCl (Ondansetron Hcl 4 Mg/2 Ml Vial) 4 mg IVPUSH Q8H PRN PRN Reason: Nausea and Vomiting Pharmacy Consult (Consult Rx Perform Med Rec) 1 each MISCELLANE ONCE PRN PRN Reason: Consult order Sodium Chloride (0.9 % Sodium Chloride Flush 3 Ml Syringe) 3 ml IVFLUSH QSHIFT [facility] Last Admin: 04/24/22 07:41 Dose: 3 ml Documented by: SURESH Labs CBC & Chem 7: 04/24/22 06:12 04/24/22 06:12 Labs: Laboratory Results - last 24 hr 04/23/22 04/24/22 04/24/22 12:33 06:12 06:12 MCV 90.0 MCH 29.7 MCHC 33.0 RDW 15.1 Plt Count 245 MPV 10.2 Absolute Nucleated RBC 0.000 Nucleated RBC % (auto) 0.0 Anion Gap 13 Estim Creat Clear Calc 107.7 Estimated GFR > 60 Random Glucose 134 H Calcium 9.7 Troponin I High Sens 3.6 Microbiology Microbiology Results: Microbiology 04/23/22 06:46 Blood Culture - Preliminary Blood - Venous No growth after 24 hours. 04/23/22 06:46 Blood Culture - Preliminary Blood - Venous No growth after 24 hours. Assessment and Plan (1) Acute respiratory failure with hypoxia: Status: Acute Plan This is a 72 yo M with a PMH of COPD, Chronic resp. failure with hypoxia (on 2L with exertion), prior VT without stenting who presents to the ED with complaints of rhinorrhea, non-productive cough, hypoxia and shortness of breath of 1 day duration. His work up is most consistent with acute exacerbation of COPD secondary to viral / bacterial bronchitis causing acute on chronic resp. failure with hypoxia. He will be admitted for further treatment. 1. Acute Respiratory failure with hypoxia 1a. Acute excerbation of COPD 1a. Possible viral / bacterial bronchitis Baseline O2 = 2L with exertion; currently requiring 4L at rest No evidence of pneumonia on chest imaging; DuoNebs scheduled + PRN; IV solu-medrol; supplemental O2 to keep saturation around 90% -- do not over oxygenate Empiric doxycycline. The patient does not have severe sepsis at this time 2. Abnormal EKG Previous EKG in system in 2013 - so unclear if these are truly new changes HS trop-I negative x 2 tele monitoring ECHO pending 3. CAD - s/p VT (without stenting) on BB + statin; not on asa EKG as above 4. HTN BP on the softer side - amlodipine/benazepril on hold for now will follow bp closely Full Code DVT pptx, Lovenox Endorses his as HCP Attending: dr. moore Patient requires ongoing inpatient hospitalization due to acute COPD exacerbation and pending echocardiogram Quality Stroke Does the patient have a stroke diagnosis?: No VTE Prior VTE?: No VTE Risk Level:: Medical - moderate - high VTE Device Contraindication: Treatment Not Indicated VTE Drug Contraindication: N/A - Med Ordered
[2022-04-24] MEDS: Atorvastatin Calcium 20 MG TABLET PO (21:05)
[2022-04-24] MEDS: atenoloL 100 MG TABLET PO (21:05)
[2022-04-25] VITALS (7 sets, daily range): BP systolic 131–150; BP diastolic 74–90; PULSE 73–96; RESP 16–20; TEMP 36.1–37.1; O2SAT 91–98
[2022-04-25] MEDS: methylPREDNISolone Sod Succ 40 MG/ML VIAL IVPUSH ×3 (03:41→19:39)
[2022-04-25] MEDS: Albuterol/Iprat 2.5/0.5MG 3 ML AMPUL.NEB INHALE ×3 (08:16→15:17)
[2022-04-25] MEDS: 0.9 % Sodium Chloride Flush 3 ML SYRINGE IVFLUSH ×3 (08:42→19:39)
--- NOTE | 2022-04-25 10:57 | P.CONPL_ITS ---
History of Present Illness History of Present Illness Consult date: 04/25/22 Reason for consult: cough, COPD and hypoxemia Chief complaint: SOB, 85% PER EMS Narrative: This 72 years old gentleman is a well known patient to me she and is followed by me as outpatient. He does have history of long-standing chronic obstructive pulmonary disease. He is doing well at home on his usual inhalers including Advair and Spiriva with Combivent Respimat p.r.n. He has also been on oxygen 2 L/minute. He has past history of smoking and is the being, screened by annual lung scan , at [facility]. This time he has history of nasal congestion with postnasal discharge and increased cough for the last 3-4 days. He presented to the emergency room on 04/23, because of increased respiratory distress and requirement of increase oxygen. Even on O2 3 L/minute his O2 sat was in mid 80s. He denies fever chills or chest pain. Now since in the hospital he is being treated with doxycycline as antibiotic, empirically, and is also on IV Solu-Medrol and DuoNeb updrafts. Since yesterday he is starting to feel better and now he is able to walk around with O2 3 L/minute. 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 Being in the hospital he is getting somewhat anxious , about his 's condition. Review of Systems Review of Systems: Yes all other systems are reviewed and are negative Constitutional: Constitutional: Reports body ache(s), Reports chills, Reports fatigue and Reports fever(s) Eyes: Eyes: Reports no additional eye complaints and Reports itchy eyes ENT: Reports nasal congestion and Reports post nasal drip Cardiovascular: Cardiovascular: Denies chest pain, Denies irregular heart rh ythm, Denies leg edema and Reports dyspnea on exertion Respiratory: Respiratory: Reports as per HPI and Reports dyspnea on exertion Gastrointestinal: Gastrointestinal: Reports no additional gastrointestinal complaints Genitourinary: Genitourinary: Reports no additional male genitourinary complaints Neurologic: Reports system reviewed and no additional complaints, except as documented Psychiatric: Psychiatric: Reports anxiety, Reports depression, Reports difficulty concentrating, Reports irritability and Reports mood swings Endocrine: Endocrine: Reports no additional endocrine complaints and Reports fatigue Hematologic/Lymphatic: Hematologic/Lymphatic: Reports no additional hematologic/lymphatic complaints Allergic/Immunologic: Allergic/Immunologic: Reports no additional allergic/im munologic complaints and Reports itchy eyes PMFSH Past Medical History Medical History (Updated 04/25/22 @ 11:08 by Michael Mcqueen MD) Acute bronchitis and bronchiolitis COPD (chronic obstructive pulmonary disease) Hypoxemia requiring supplemental oxygen Myocardial infarct Surgical History Surgical History History of appendectomy Social History Social History Household Members: Spouse Housing: House Do you presently have visiting nurse or other home services: No Patient Tobacco Use Status: Former Tobacco user service: Yes Current occupational status: retired [employer] Allergies Allergy/AdvReac Type Severity Reaction Status Date / Time No Known Allergies Allergy Mild NOT Verified 02/06/22 13:45 APPLICABLE Active Medications: Current Medications Acetaminophen (Acetaminophen 325 Mg Tablet) 650 mg PO Q6H PRN PRN Reason: Pain, Mild (Pain Scale 1-3) Albuterol Sulfate (Albuterol Sulfate (0.083%) 2.5 Mg/3 Ml Vial.Neb) 2.5 mg INHALE Q3H PRN PRN Reason: Shortness of Breath/Wheezing Albuterol/Ipratropium (Albuterol/Iprat 2.5/0.5mg 3 Ml Ampul.Neb) 3 ml INHALE RQ4H WHILE AWAKE [facility] Last Admin: 04/25/22 08:16 Dose: 3 ml Documented by: Atenolol (Atenolol 100 Mg Tablet) 100 mg PO BEDTIME [facility]; Protocol Last Admin: 04/24/22 21:05 Dose: 100 mg Documented by: Atorvastatin Calcium (Atorvastatin Calcium 20 Mg Tablet) 20 mg PO BEDTIME [facility] Last Admin: 04/24/22 21:05 Dose: 20 mg Documented by: Doxycycline Hyclate (Doxycycline Hyclate 100 Mg Tablet) 100 mg PO Q12H [facility] Last Admin: 04/25/22 08:42 Dose: 100 mg Documented by: Enoxaparin Sodium (Enoxaparin Sodium 40 Mg/0.4 Ml Syringe) 40 mg SUBCUT Q24H [facility] Last Admin: 04/24/22 11:32 Dose: 40 mg Documented by: Methylprednisolone Sodium Succinate (Methylprednisolone Sod Succ 40 Mg/Ml Vial) 40 mg IVPUSH Q8H [facility] Last Admin: 04/25/22 03:41 Dose: 40 mg Documented by: Ondansetron HCl (Ondansetron Hcl 4 Mg/2 Ml Vial) 4 mg IVPUSH Q8H PRN PRN Reason: Nausea and Vomiting Pharmacy Consult (Consult Rx Perform Med Rec) 1 each MISCELLANE ONCE PRN PRN Reason: Consult order Sodium Chloride (0.9 % Sodium Chloride Flush 3 Ml Syringe) 3 ml IVFLUSH QSHIFT [facility] Last Admin: 04/25/22 08:42 Dose: 3 ml Documented by: Home Medications Medication Instructions Recorded Confirmed Last Taken Type amlodipine 10 mg-benazepril 40 mg 1 cap PO BEDTIME 09/10/20 04/23/22 04/22/22 History capsule atenolol 100 mg tablet 100 mg PO BEDTIME 09/10/20 04/23/22 04/22/22 History atorvastatin 20 mg tablet 20 mg PO BEDTIME 09/10/20 04/23/22 04/22/22 History sildenafil 50 mg tablet 50 mg PO DAILY PRN 09/10/20 04/23/22 04/22/22 History ipratropium 20 mcg-albuterol 100 1 puff INHALATION QID PRN 04/23/22 04/23/22 04/22/22 History mcg/actuation mist for inhalation (Combivent Respimat) tiotropium bromide 2.5 2 puff INHALATION DAILY 04/23/22 04/23/22 04/22/22 History mcg/actuation mist for inhalation (Spiriva Respimat) Physical Exam Vital Signs: Vital Signs: Last Vital Signs Temp 98.0 F 04/25/22 07:53 Pulse 75 04/25/22 08:19 Resp 16 04/25/22 08:19 BP 132/82 04/25/22 07:53 Pulse Ox 92 04/25/22 07:53 Oxygen Flow Rate 6 04/23/22 06:05 BMI result Body Mass Index 24.2 Const: General: comfortable (But moderately short of breath on activity), no acute distress, alert and awake Orientation/consciousness: patient oriented x3 HEENT: Head: Yes normal to inspection General nose exam: No nasal polyps present and No nasal discharge present Face and sinus: Yes sinuses nontender Mouth: oropharynx normal Throat: Yes posterior oropharynx normal Eyes: General: appearance normal, both eyes and all related structures Neck: Neck: Yes normal visual inspection, Yes no lymphadenopathy, Yes trachea midline and Yes no JVD Thyroid: Thyroid normal Chest: Chest palpation & inspection: normal inspection of the chest, normal palpation of entire chest wall and no tenderness Resp: Other: Percussion note is resonant, breath sounds are distant with prolonged expiratory phase. He has prominent inspiratory crepitations over both lower lobes especially on the left side. Cardio: Palpation: normal PMI Rate: regular rate Rhythm: regular rhythm Heart sounds: no gallops and no murmurs Peripheral pulses: Peripheral pulses 2+ throughout GI: Palpation (GI): Soft to palpation, nontender, No hepatosplenomegaly present and no masses Auscultation: normal bowel sounds Back/Spine/Pelvis: Thoracic/Lumbar Spine: thoracic and lumbar spine normal to inspection Skin: General skin exam: no rashes or lesions noted Neuro: General: patient oriented x3 and no focal motor deficits Cranial nerves: Yes CN's II-XII intact bilaterally Extrem: General: Yes normal to inspection, Yes no clubbing, cyanosis or edema and Yes no calf tenderness Psych: Speech and movement: Normal speech and movement present Results Laboratory Findings CBC and BMP: 04/24/22 06:12 04/24/22 06:12 ABG, PT/INR, D-dimer: PT/INR, D-dimer PT 12.6 SEC (9.9-13.0) 04/23/22 06:46 INR 1.1 (0.9-1.1) 04/23/22 06:46 Abnormal lab findings: Abnormal Labs 04/23/22 04/23/22 04/23/22 06:46 06:46 06:46 WBC 17.5 H Hgb 13.9 L Hct 41.9 L Immature Gran % (Auto) 0.6 H Neut % (Auto) 84.1 H Lymph % (Auto) 7.9 L Abs Immat Gran (auto) 0.10 H Absolute Neuts (auto) 14.7 H Random Glucose 135 H B-Natriuretic Peptide 108 H 04/24/22 04/24/22 06:12 06:12 WBC 23.4 H Hgb 13.7 L Hct 41.5 L Immature Gran % (Auto) Neut % (Auto) Lymph % (Auto) Abs Immat Gran (auto) Absolute Neuts (auto) Random Glucose 134 H B-Natriuretic Peptide Microbiology: Microbiology 04/23/22 06:46 Blood - Venous Blood Culture - Preliminary No growth after 48 hours. 04/23/22 06:46 Blood - Venous Blood Culture - Preliminary No growth after 48 hours. Diagnostic Findings Chest x-ray: report reviewed and image reviewed Assessment and Plan (1) Acute exacerbation of chronic obstructive airways disease: Status: Acute (2) Acute respiratory failure with hypoxia: Status: Acute (3) Acute bronchitis and bronchiolitis: Status: Acute Plan This gentleman does have chronic obstructive pulmonary disease, He has been fairly stable on his regular regimen, and O2 2 L/minute. Now he presents with acute exacerbation probably due to nonspecific respiratory infection. Coarse crepitations over both lower lobes especially on the left side raise question of bronchiolitis/bronchiectasis. I think we should get a CT scan of the chest to make sure he does not have pneumonia. Recc . CT scan of the chest. Continue IV Solu-Medrol 40 mg q.8 hours. Continue IV doxycycline which will be changed to oral on his discharge. O2 3-4 L/minute to maintain O2 sat above 90%. DuoNeb updrafts Q 6 hours while awake . At the time of discharge , he can resume using his Advair and Spiriva as before. I discussed with the patient in detail and try to reassure him. Thank you very much for asthma to see this patient. Procedures Date of Service Date of Service: 04/25/22
--- NOTE | 2022-04-25 11:39 | P.PNIM_ITS ---
Subjective Subjective Date of Service: 04/25/22 Interval History: seen and examined this morning follow up for dyspnea, COPD still reporting dysnpea with exertion no significant cough Review of Systems Review of Systems: Yes all other systems are reviewed and are negative Constitutional Constitutional: Denies chills and Denies fever(s) Cardiovascular Cardiovascular: Denies chest pain, Denies palpitations, Reports dyspnea and Reports dyspnea on exertion Respiratory Respiratory: Denies cough, Denies pain on inspiration, Denies pain with cough, Reports dyspnea and Reports dyspnea on exertion Gastrointestinal Gastrointestinal: Denies abdominal pain, Denies diarrhea, Denies nausea and Denies vomiting Endocrine Endocrine: Denies palpitations Physical Exam Vital Signs: Vital Signs: Last Vital Signs Temp 98.0 F 04/25/22 07:53 Pulse 75 04/25/22 08:19 Resp 16 04/25/22 08:19 BP 132/82 04/25/22 07:53 Pulse Ox 92 04/25/22 07:53 Oxygen Flow Rate 6 04/23/22 06:05 BMI result Body Mass Index 24.2 Const: General: cooperative, comfortable, alert and awake Nutritional Appearance: average body habitus Orientation/consciousness: patient oriented x3 Eyes: Pupils: Equal, round and reactive pupils present EOM: EOMs intact bilaterally Resp: Other: able to take bigger breaths today Effort & Inspection: normal respiratory effort and able to speak in complete sentences Auscultation: diminished lung sounds Cardio: Rate: regular rate Heart sounds: S1 normal heart sound present and S2 normal heart sound present GI: Inspection: No distended Palpation (GI): nontender Neuro: General: patient oriented x3 Cranial nerves: Yes Equal, round and reactive pupils present Extrem: General: Yes no pedal edema Objective Data Active Medications Acetaminophen (Acetaminophen 325 Mg Tablet) 650 mg PO Q6H PRN PRN Reason: Pain, Mild (Pain Scale 1-3) Albuterol Sulfate (Albuterol Sulfate (0.083%) 2.5 Mg/3 Ml Vial.Neb) 2.5 mg INHALE Q3H PRN PRN Reason: Shortness of Breath/Wheezing Albuterol/Ipratropium (Albuterol/Iprat 2.5/0.5mg 3 Ml Ampul.Neb) 3 ml INHALE RQ4H WHILE AWAKE [facility] Last Admin: 04/25/22 08:16 Dose: 3 ml Documented by: HUDSON Atenolol (Atenolol 100 Mg Tablet) 100 mg PO BEDTIME [facility]; Protocol Last Admin: 04/24/22 21:05 Dose: 100 mg Documented by: JOEY Atorvastatin Calcium (Atorvastatin Calcium 20 Mg Tablet) 20 mg PO BEDTIME [facility] Last Admin: 04/24/22 21:05 Dose: 20 mg Documented by: JOEY Doxycycline Hyclate (Doxycycline Hyclate 100 Mg Tablet) 100 mg PO Q12H [facility] Last Admin: 04/25/22 08:42 Dose: 100 mg Documented by: SURESH Enoxaparin Sodium (Enoxaparin Sodium 40 Mg/0.4 Ml Syringe) 40 mg SUBCUT Q24H [facility] Last Admin: 04/24/22 11:32 Dose: 40 mg Documented by: SURESH Methylprednisolone Sodium Succinate (Methylprednisolone Sod Succ 40 Mg/Ml Vial) 40 mg IVPUSH Q8H [facility] Last Admin: 04/25/22 03:41 Dose: 40 mg Documented by: JOEY Ondansetron HCl (Ondansetron Hcl 4 Mg/2 Ml Vial) 4 mg IVPUSH Q8H PRN PRN Reason: Nausea and Vomiting Pharmacy Consult (Consult Rx Perform Med Rec) 1 each MISCELLANE ONCE PRN PRN Reason: Consult order Sodium Chloride (0.9 % Sodium Chloride Flush 3 Ml Syringe) 3 ml IVFLUSH QSHIFT [facility] Last Admin: 04/25/22 08:42 Dose: 3 ml Documented by: SURESH Labs CBC & Chem 7: 04/24/22 06:12 04/24/22 06:12 Microbiology Microbiology Results: Microbiology 04/23/22 06:46 Blood Culture - Preliminary Blood - Venous No growth after 48 hours. 04/23/22 06:46 Blood Culture - Preliminary Blood - Venous No growth after 48 hours. Assessment and Plan (1) Acute bronchitis and bronchiolitis: Status: Acute Plan This is a 72 yo M with a PMH of COPD, Chronic resp. failure with hypoxia (on 2L with exertion), prior HI without stenting who presents to the ED with complaints of rhinorrhea, non-productive cough, hypoxia and shortness of breath of 1 day duration. His work up is most consistent with acute exacerbation of COPD secondary to viral / bacterial bronchitis causing acute on chronic resp. failure with hypoxia. He will be admitted for further treatment. 1. Acute Respiratory failure with hypoxia 1a. Acute excerbation of COPD 1a. Possible viral / bacterial bronchitis Baseline O2 = 2L with exertion; currently requiring 4L at rest No evidence of pneumonia on chest imaging DuoNebs scheduled + PRN; IV solu-medrol; supplemental O2 to keep saturation around 90% -- do not over oxygenate Empiric doxycycline. The patient does not have severe sepsis at this time Seen by pulmonology - rec chest CT 2. Abnormal EKG Previous EKG in system in 2013 - so unclear if these are truly new changes HS trop-I negative x 2 tele monitoring ECHO with no WMA 3. CAD - s/p HI (without stenting) on BB + statin; not on asa EKG as above 4. HTN BP on the softer side - amlodipine/benazepril on hold for now continue atenolol will follow bp closely Leukocytosis r/t steroids not sepsis Full Code DVT pptx, Lovenox Endorses his as HCP Attending: dr. moore Patient requires ongoing inpatient hospitalization due to acute COPD exacerbation and further workup for dyspnea Quality Stroke Does the patient have a stroke diagnosis?: No VTE Prior VTE?: No VTE Risk Level:: Medical - moderate - high VTE Device Contraindication: Treatment Not Indicated VTE Drug Contraindication: N/A - Med Ordered
--- NOTE | 2022-04-25 12:22 | MHC.CM.PN ---
PER ROUNDS PT EXPECTED TO BE DCD SAT DC PLAN REMAINS HOME NO SERVICES
[2022-04-25] MEDS: Enoxaparin Sodium 40 MG/0.4 ML SYRINGE SUBCUT (13:05)
[2022-04-25] MEDS: Atorvastatin Calcium 20 MG TABLET PO (19:39)
[2022-04-25] MEDS: atenoloL 100 MG TABLET PO (19:39)
[2022-04-25] MEDS: Milk of Magnesia 30 ML ORAL.SUSP 15 ML PO (19:52)
[2022-04-25] MEDS: polyethylene glycoL 3350 17 GM POWD.PACK PO (19:53)
--- NOTE | 2022-04-25 22:53 | MHC.PIE ---
p; pt c/o constipation, pt reports last bm on thursday i; dr andres notified; new order milk of mag now. miralax daily e; will cont to tor
[2022-04-26 03:56] VITALS: BP 139/84; PULSE 68; RESP 18; TEMP 36.6; O2SAT 93
[2022-04-26] MEDS: methylPREDNISolone Sod Succ 40 MG/ML VIAL IVPUSH ×2 (04:00→12:12)
[2022-04-26 08:00] VITALS: BP 139/85; PULSE 63; RESP 20; TEMP 36.8; O2SAT 94
[2022-04-26 08:21] VITALS: PULSE 63; RESP 20; O2SAT 94
[2022-04-26] MEDS: Albuterol/Iprat 2.5/0.5MG 3 ML AMPUL.NEB INHALE ×2 (08:21→11:34)
[2022-04-26] MEDS: polyethylene glycoL 3350 17 GM POWD.PACK PO (08:30)
[2022-04-26] MEDS: 0.9 % Sodium Chloride Flush 3 ML SYRINGE IVFLUSH (08:31)
--- NOTE | 2022-04-26 10:55 | P.PNPL_ITS ---
Subjective Subjective Date of Service: 04/26/22 Principal diagnosis: copd excarbation Interval history: This gentleman is feeling a little better as far as breathing is concerned. No fever chills or chest pain. Cough is less and mostly dry. He is somewhat anxious about going home. Ox he is doing okay with O2 3 L/minute. Objective Data Labs CBC & Chem 7: 04/24/22 06:12 04/24/22 06:[address] scan - chest: Attestation: I personally reviewed and interpreted this imaging study as follows: (No evidence of any mass, also no evidence of consolidation. Bronchial thickening, in lower lobes consistent with chronic bronchitis) My impression: Microbiology Microbiology Results: Microbiology 04/23/22 06:46 Blood - Venous Blood Culture - Preliminary No growth after 48 hours. 04/23/22 06:46 Blood - Venous Blood Culture - Preliminary No growth after 48 hours. Physical Exam Vital Signs: Vital Signs: Last Vital Signs Temp 98.3 F 04/26/22 08:00 Pulse 63 04/26/22 08:21 Resp 20 04/26/22 08:21 BP 139/85 04/26/22 08:00 Pulse Ox 94 04/26/22 08:00 Oxygen Flow Rate 6 04/23/22 06:05 BMI result Body Mass Index 24.2 Procedures Date of Service Date of Service: 04/26/22 Assessment and Plan Assessment and plan (1) Acute bronchitis and bronchiolitis: Status: Acute (2) Acute exacerbation of chronic obstructive airways disease: Status: Acute (3) Hypoxemia requiring supplemental oxygen: Status: Acute Plan He is getting better as far as acute exacerbation is concerned. Recc > may change IV Solu-Medrol to prednisone 40 mg a day and wean down by 10 mg every week. May change doxycycline to p.o. and complete the course for tend. O2 3 L/minute and during physical activity he may increased up to 4 L/minute. Patient may resume his previous inhalers, including Advair HFA 230- 212 puffs b.i.d. Spiriva Respimat 2.52 puffs daily and Combivent Respimat 1 inhalation Q 4-6 hours p.r.n. Patient may be discharged home, and he should be seen in the office in 7-10 days for follow-up. Time Spent With Patient Time: Total time spent is greater than 50% in coordination of care (as documented) at patient's floor/unit and/or counseling patient: Progress Note: Quality Stroke Does the patient have a stroke diagnosis?: No
[2022-04-26 11:35] VITALS: PULSE 73; RESP 20; O2SAT 93
[2022-04-26 12:00] VITALS: BP 136/72; PULSE 80; RESP 20; TEMP 37.2; O2SAT 92
[2022-04-26] MEDS: Enoxaparin Sodium 40 MG/0.4 ML SYRINGE SUBCUT (12:12)
--- NOTE | 2022-04-26 12:28 | P.DS_ITS ---
DS: Providers Provider Date of Service: 04/26/22 Date of admission: 04/23/22 11:31 Date of discharge: 04/26/22 Primary care physician: Clive Harris MD Consults: 04/25/22 09:07 Consult to Pulmonology Routine Consulting Provider: Michael Mcqueen Reason for consultation: copd Has provider been notified: No 04/26/22 09:04 Consult to Cardiology Routine Consulting Provider: Nael Sylvester Reason for consultation: dyspnea Has provider been notified: No Attending physician on discharge: Anne-Marie Benito Discharging clinician: Ana Luisa Steven DS: Diagnosis Discharge Diagnosis (1) Acute bronchitis and bronchiolitis: Status: Acute (2) Acute exacerbation of chronic obstructive airways disease: Status: Acute (3) Hypoxemia requiring supplemental oxygen: Status: Acute DS: Summary Hospital Course Hospital Course: From H&P on day of admission This is a 72 yo M with a PMH of COPD, chronic respiratory failure with hypoxia (on 2L with exertion, no oxygen at rest), prior NC, who presents to [facility] ED today with complaints of respiratory symptoms of 1 day duration. The patient reports that 2 days prior to admission, he was in his usual state of health. One day [employer], he began having rhinorrhea and a non- productive cough. Later the same day, he noticed increased shortness of breath -- initially with exertion and subsequently even at rest. He planned on sleeping through the night and re-evaluating his condition the next day, however, over night his shortness of breath increased. He has a pulse ox at home and this showed a value of 85% with his 2L of oxygen on and so he decided to call EMS. He reported no sick contacts. He reports no anginal chest pain. He denies fevers or chills. He reports quitting smoking in his 50s. He reports being vaccinated for COVID with mRNA vaccine (including 2 boosters). He was given Solu-Medrol and DuoNebs in route to the ED. Upon arrival to the ED, he was found to be tachycardic and tachypneic. He had increased work of breathing. He was given an additional 1 hour long neb with basically no improvem ent in his respiratory status. The remainder of his work up revealed Leukocytosis of 17, CXR with mild peribronchial thickening in the b/l lower lung zones. His EKG showed showed multiple abnormalities (new from prior EKG, but last one was in 2013) with a negative HS trop-I. Despite the above treatment, the patient continued to hypoxic along with respiratory symptoms. He will be admitted for further treatment. Acute Respiratory failure with hypoxia secondary to Acute excerbation of COPD and Possible viral / bacterial bronchitis. He was started on IV Solu-Medrol, DuoNeb scheduled and as needed as well as IV doxycycline. He was seen in consultation by pulmonology who agreed with management and recommended chest CT. Chest CT showed atelectasis versus pneumonia in the right lower lobe, pulmonology felt these findings represented chronic bronchitis. Patient's breathing gradually improved and he is stable for discharge home. He will be discharged home with long prednisone taper starting with 40 mg daily for 1 week and decreasing by 10 mg each week. He will complete a course of doxycycline. His home oxygen will be increased to 3 liters/minute at rest and may increase up to 4 liters/minute for physical activity. He should resume his previous inhalers and should call to schedule follow-up appointment with Dr. Mcqueen in 7- 10 days. Due to dyspnea and abnormal EKG, patient underwent echocardiogram which showed evidence of diastolic dysfunction but no wall motion abnormality was seen. Cardiac enzymes were negative x2. He was seen in consultation by Cardiology who did not feel that he had any component of CHF contributing to his dyspnea. No further workup is required at this time This was discussed with the patient in detail and he is in agreement with the above plan. Time Spent with Patient Time attestation: Total time spent providing and/or coordinating discharge services: Discharge coordination time: Greater than 30 minutes Quality: Safe Use of Opioids Does Pt have an Active Cancer Diagnosis on the Problem List?: No Quality: Stroke Does the patient have a stroke diagnosis?: No Physical Exam Vital Signs: Vital Signs: Last Vital Signs Temp 98.9 F 04/26/22 12:00 Pulse 80 04/26/22 12:00 Resp 20 04/26/22 12:00 BP 136/72 04/26/22 12:00 Pulse Ox 92 04/26/22 12:00 Oxygen Flow Rate 6 04/23/22 06:05 BMI result Body Mass Index 24.2 DS: Data Data Completed and Pending Labs on day of discharge: Preliminary micro results at discharge 04/23/22 06:46 Blood Culture - Preliminary Blood - Venous No growth after 48 hours. 04/23/22 06:46 Blood Culture - Preliminary Blood - Venous No growth after 48 hours. Discharge Plan Discharge Patient Disposition: Home, Self-Care Discharge Diagnosis: Acute COPD exacerbation Referrals: Michael Mcqueen MD [Physician] - 1 Week Clive Harris MD [Primary Care Provider] - 1 Week Discharge Medications: New prednisone 10 mg tablet See Taper mg PO DAILY Qty: 70 0RF Taper: Prednisone 40 mg daily for 7 Days and 0 Hour 30 mg daily for 7 Days and 0 Hour 20 mg daily for 7 Days and 0 Hour 10 mg daily for 7 Days and 0 Hour doxycycline hyclate 100 mg tablet 100 mg PO BID 3 Days Qty: 6 0RF Continued Advair HFA 230-21 mcg/actuation HFA aerosol inhaler 2 puff inhalation BID Qty: 12 11RF Spiriva Respimat 2.5 mcg/actuation mist 2 puff inhalation DAILY 0RF Combivent Respimat 20-100 mcg/actuation mist 1 puff inhalation QID PRN (Reason: Wheezing) 0RF Rx Instructions: space evenly during waking hours amlodipine-benazepril 10-40 mg capsule 1 cap PO BEDTIME 0RF atenolol 100 mg tablet 100 mg PO BEDTIME 0RF atorvastatin 20 mg tablet 20 mg PO BEDTIME 0RF sildenafil 50 mg tablet 50 mg PO DAILY PRN (Reason: Sexual Activity) 0RF Discharge Orders: Discharge Order (Routine); Ordered 04/26/22 Ordered By: Ana Luisa Steven Activity on Discharge: As tolerated Stand Alone Forms: Patient Portal Discharge page Care Plan Goals: see below Health Concerns: COPD exacerbation Plan of Treatment: Take prednisone taper as prescribed, 40 mg daily for 7 days and decrease by 10 mg each week until prednisone is gone Complete course of antibiotics (doxycycline) Call to schedule follow-up appointment with Dr. Mcqueen in the next 7-10 days Continue using baseline inhalers as prescribed Pulmonology recommended using 3 L of oxygen per minute and may increase to 4L/minute with physical activity Return to the ED with any worsening of shortnesss of breath Assessment: see above Patient Instructions: COPD (Chronic Obstructive Pulmonary Disease) (ED) Discharge Date/Time: 04/26/22 16:20
--- NOTE | 2022-04-26 12:54 | MHC.CM.PN ---
PT WILL DC HOME TODAY WITH NO SERVICES FAMILY TO TRANSPORT
--- NOTE | 2022-04-26 13:38 | PM.CNCAR ---
History of Present Illness History of Present Illness Date of Service: 04/26/22 Requesting physician: Ana Luisa Steven Consult reason: other (Possible CHF) Chief complaint: SOB, 85% PER EMS Narrative: I was consulted to see Sergio in cardiology consultation today because of his respiratory failure and minimally elevated BNP. Sergio is 72-year-old male with prior history of COPD with chronic respiratory failure on oxygen therapy at home. Patient presented with significantly worsening shortness of breath and wheezing. As a workup. The BNP perform which was minimally elevated. No prior history of congestive heart failure. He has no other cardiac history no history of CAD, but has past medical history of hypertension hyperlipidemia. Patient echocardiogram which showed normal LV systolic function without any significant left-sided it pressures but was noted to have moderate RV systolic pressure elevation. Cardiology consult was sought because of question of congestive heart failure. Review of Systems Constitutional: Constitutional: Reports no additional constitutional complaints Eyes: Eyes: Reports no additional eye complaints Cardiovascular: Cardiovascular: Denies chest pain, Denies leg edema, Denies lightheadedness, Denies Loss of Consciousness, Denies palpitations and Reports dyspnea on exertion Respiratory: Respiratory: Reports excessive phlegm production, Reports dyspnea on exertion and Reports wheezing Gastrointestinal: Gastrointestinal: Reports no additional gastrointestinal complaints Genitourinary: Genitourinary: Reports no additional male genitourinary complaints Musculoskeletal: Musculoskeletal: Reports no additional musculoskeletal complaints Integumentary/Breasts: Skin/Breast: Reports system reviewed and no additional complaints, except as docu Neurologic: Reports system reviewed and no additional complaints, except as documented Psychiatric: Psychiatric: Reports no additional psychiatric complaints Endocrine: Endocrine: Reports no additional endocrine complaints and Denies palpitations Allergic/Immunologic: Allergic/Immunologic: Reports no additional allergic/immunologic complaints and Reports wheezing PMFSH Past Medical History Medical History Acute bronchitis and bronchiolitis COPD (chronic obstructive pulmonary disease) Hypoxemia requiring supplemental oxygen Myocardial infarct Surgical History Surgical History History of appendectomy Social History Social History Household Members: Spouse Housing: House Do you presently have visiting nurse or other home services: No Patient Tobacco Use Status: Former Tobacco user service: Yes Current occupational status: retired Meds Allergies Allergy/AdvReac Type Severity Reaction Status Date / Time No Known Allergies Allergy Mild NOT Verified 02/06/22 13:45 APPLICABLE Active Medications: Current Medications Acetaminophen (Acetaminophen 325 Mg Tablet) 650 mg PO Q6H PRN PRN Reason: Pain, Mild (Pain Scale 1-3) Albuterol Sulfate (Albuterol Sulfate (0.083%) 2.5 Mg/3 Ml Vial.Neb) 2.5 mg INHALE Q3H PRN PRN Reason: Shortness of Breath/Wheezing Albuterol/Ipratropium (Albuterol/Iprat 2.5/0.5mg 3 Ml Ampul.Neb) 3 ml INHALE RQ4H WHILE AWAKE [facility] Last Admin: 04/26/22 11:34 Dose: 3 ml Documented by: Atenolol (Atenolol 100 Mg Tablet) 100 mg PO BEDTIME [facility]; Protocol Last Admin: 04/25/22 19:39 Dose: 100 mg Documented by: Atorvastatin Calcium (Atorvastatin Calcium 20 Mg Tablet) 20 mg PO BEDTIME [facility] Last Admin: 04/25/22 19:39 Dose: 20 mg Documented by: Doxycycline Hyclate (Doxycycline Hyclate 100 Mg Tablet) 100 mg PO Q12H [facility] Last Admin: 04/26/22 08:30 Dose: 100 mg Documented by: Enoxaparin Sodium (Enoxaparin Sodium 40 Mg/0.4 Ml Syringe) 40 mg SUBCUT Q24H [facility] Last Admin: 04/26/22 12:12 Dose: 40 mg Documented by: Methylprednisolone Sodium Succinate (Methylprednisolone Sod Succ 40 Mg/Ml Vial) 40 mg IVPUSH Q12H [facility] Last Admin: 04/26/22 12:12 Dose: 40 mg Documented by: Ondansetron HCl (Ondansetron Hcl 4 Mg/2 Ml Vial) 4 mg IVPUSH Q8H PRN PRN Reason: Nausea and Vomiting Pharmacy Consult (Consult Rx Perform Med Rec) 1 each MISCELLANE ONCE PRN PRN Reason: Consult order Polyethylene Glycol (Polyethylene Glycol 3350 17 Gm Powd.Pack) 17 gm PO DAILY [facility] Last Admin: 04/26/22 08:30 Dose: 17 gm Documented by: Sodium Chloride (0.9 % Sodium Chloride Flush 3 Ml Syringe) 3 ml IVFLUSH QSHIFT [facility] Last Admin: 04/26/22 08:31 Dose: 3 ml Documented by: Home Medications Medication Instructions Recorded Confirmed Last Taken Type amlodipine 10 mg-benazepril 40 mg 1 cap PO BEDTIME 09/10/20 04/23/22 04/22/22 History capsule atenolol 100 mg tablet 100 mg PO BEDTIME 09/10/20 04/23/22 04/22/22 History atorvastatin 20 mg tablet 20 mg PO BEDTIME 09/10/20 04/23/22 04/22/22 History sildenafil 50 mg tablet 50 mg PO DAILY PRN 09/10/20 04/23/22 04/22/22 History ipratropium 20 mcg-albuterol 100 1 puff INHALATION QID PRN 04/23/22 04/23/22 04/22/22 History mcg/actuation mist for inhalation (Combivent Respimat) tiotropium bromide 2.5 2 puff INHALATION DAILY 04/23/22 04/23/22 04/22/22 History mcg/actuation mist for inhalation (Spiriva Respimat) Physical Exam Vital Signs: Vital Signs: Last Vital Signs Temp 98.9 F 04/26/22 12:00 Pulse 80 04/26/22 12:00 Resp 20 04/26/22 12:00 BP 136/72 04/26/22 12:00 Pulse Ox 92 04/26/22 12:00 Oxygen Flow Rate 6 04/23/22 06:05 BMI result Body Mass Index 24.2 Const: General: cooperative, comfortable, no acute distress, alert, awake and anxious Nutritional Appearance: average body habitus Orientation/consciousness: patient oriented x3 Limitations: no limitations HEENT: Head: Yes normocephalic and Yes atraumatic Neck: Neck: Yes trachea midline, Yes supple and Yes no JVD Resp: Effort & Inspection: normal respiratory effort Auscultation: wheezes scattered wheezes and diminished lung sounds Cardio: Jugular venous distension: no JVD Palpation: normal PMI Rate: regular rate Rhythm: regular rhythm Heart sounds: S1 normal heart sound present, S2 normal heart sound present, no click, no gallops, no murmurs and no rubs GI: Auscultation: normal bowel sounds Skin: General skin exam: no rashes or lesions noted Neuro: General: patient oriented x3 and no focal motor deficits Extrem: General: Yes no clubbing, cyanosis or edema Objective Labs and Meds Result diagrams: 04/24/22 06:12 04/24/22 06:12 Imaging Radiologist's impression: Impressions Chest CT 04/25/22 11:46 IMPRESSION: Moderate emphysema. Bronchial wall thickening noted at the lung bases which could be associated with acute or chronic bronchitis. There is minimal associated consolidation dependently in the right lower lobe. This is nonspecific. This could be atelectasis or pneumonia. Fleischner guidelines were followed. Assessment and Plan (1) Elevated brain natriuretic peptide (BNP) level: Status: Acute Minimally elevated BNP in this man with significant advanced COPD and respiratory failure present with acute exacerbation. He does have moderately elevated right ventricular systolic pressure. No overt signs of heart failure. Most likely cause for elevated BNP COPD exacerbation with RV strain. I do not think he has any evidence of congestive heart failure. At this point time no cardiac therapy is recommended. Continue to optimize his pulmonary function and pulmonary treatment. May need long-term oxygen therapy to reduce RV strain. Consider pulmonary rehabilitation as outpatient. No further cardiac workup is indicated. Will sign of the case. Thank you for allowing us to partake in his care Procedures Date of Service Date of Service: 04/26/22
== END 2022-04-26 16:20 | disposition home or self-care (01) | DRG 190 ==
LOC: HO.ED 10:33 → HO.EDOVER 11:45 → HO.IMC 23:13
PROVIDERS: Student in an Organized Health Care Education/Training Program; Admitting Provider Family Medicine; Emergency Provider Emergency Medicine; PCP Internal Medicine; Visit Provider Physician Assistant Medical
DX: J44.0 Chronic obstructive pulmonary disease with (acute) lower respiratory infection (principal); J96.21 Acute and chronic respiratory failure with hypoxia; I25.2 Old myocardial infarction; J44.1 Chronic obstructive pulmonary disease with (acute) exacerbation; J20.9 Acute bronchitis, unspecified; I25.10 Atherosclerotic heart disease of native coronary artery without angina pectoris; Z20.822 Contact with and (suspected) exposure to COVID-19; Z87.891 Personal history of nicotine dependence; Z79.51 Long term (current) use of inhaled steroids; Z79.899 Other long term (current) drug therapy
CPT/HCPCS: 36415; 71045; 71250; 80048; 80053; 82803; 83605; 83880; 84484; 85025; 85027; 85610; 87040; 87502; 87635; 93005; 93306; 94640; 94644; 96365; 96367; 99285; J0456; J0696; J1650; J2920

== ENCOUNTER → 2022-05-07 14:58 | Outpatient (BNVA) | payer MEDICARE, OTHER, SELFPAY | PROVIDERS: PCP Internal Medicine; Visit Provider Internal Medicine | DX: J44.1 Chronic obstructive pulmonary disease with (acute) exacerbation (principal); R09.02 Hypoxemia; Z79.899 Other long term (current) drug therapy; Z99.81 Dependence on supplemental oxygen | CPT/HCPCS: 99212 ==

== ENCOUNTER → 2022-06-03 14:44 | Outpatient (BNVA) | payer MEDICARE, OTHER, SELFPAY | PROVIDERS: PCP Internal Medicine; Visit Provider Internal Medicine | DX: J44.9 Chronic obstructive pulmonary disease, unspecified (principal); R09.02 Hypoxemia; Z99.81 Dependence on supplemental oxygen; Z79.899 Other long term (current) drug therapy | CPT/HCPCS: 99212 ==

== ENCOUNTER → 2022-08-07 13:15 | Outpatient (BNVA) | payer MEDICARE, OTHER, SELFPAY | PROVIDERS: PCP Internal Medicine; Visit Provider Internal Medicine | DX: J44.9 Chronic obstructive pulmonary disease, unspecified (principal); R09.02 Hypoxemia; Z99.81 Dependence on supplemental oxygen | CPT/HCPCS: 99212 ==

== ENCOUNTER → 2023-02-19 13:18 | Outpatient (BNVA) | payer MEDICARE, OTHER, SELFPAY | PROVIDERS: PCP Internal Medicine; Visit Provider Internal Medicine | DX: J44.9 Chronic obstructive pulmonary disease, unspecified (principal); Z99.81 Dependence on supplemental oxygen | CPT/HCPCS: 99212 ==

== ENCOUNTER 2023-08-18 13:24 | Outpatient (AMB) | payer MEDICARE, OTHER, SELFPAY ==
[2023-08-18 13:41] VITALS: BP 96/60; PULSE 70; O2SAT 98; BMI 22.8
--- NOTE | 2023-08-18 13:41 | A.OFFVIS_ITS ---
Intake Vital Signs 08/18/23 13:41 Height 5 ft 10 in Weight 158 lb 11.725 oz BMI 22.8 BP 96/60 Blood Pressure Location Lt brachial Position Sitting Pulse 70 Pulse Source Pulse Oximeter Pulse Oximetry (%) 98 Oxygen Delivery Method Nasal Cannula Oxygen Flow Rate 2 Intake Visit Reasons: COPD Intake Note: pt is here for follow up and states he is doing well Business Services Officer Required: No Allergies No Known Allergies Allergy (Mild, Verified 08/18/23 14:04) NOT APPLICABLE Medication List - Last Reconciled 08/18/23 by Michael Mcqueen MD aspirin (Adult Low Dose Aspirin) 81 mg PO DAILY atenolol 100 mg PO BEDTIME atorvastatin 20 mg PO BEDTIME fluticasone propion-salmeterol 230-21 mcg/actuation (Advair HFA) 2 puffs inhalation BID ipratropium-albuterol 20-100 mcg/actuation (Combivent Respimat) 1 puff inhalation QID lisinopril-hydrochlorothiazide 20-25 mg 1 tab PO DAILY sildenafil 50 mg PO DAILY PRN tiotropium bromide 2.5 mcg/actuation (Spiriva Respimat) 2 puffs inhalation QAM Do you need a note to return to daycare/school/sports/work: No HPI COPD HPI Details 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 LUCKILY THERE HAS BEEN NO ACUTE INFECTION OR ACUTE. EXACERBATION DURING THE PAST 6 MONTHS HE HAS CUT DOWN THE USE OF OXYGEN 2 L/MINUTE ONLY 2 L/MT AT NIGHT AND P.R.N. WHEN HE IS DOING ANY PHYSICAL WORK OR GOES OUTSIDE. AT HOME HE CAN BE RESTING WITHOUT OXYGEN . HE DENIES ANY COUGH OR WHEEZING. HE DOES GET SHORT OF BREATH ON WALKING UP HILL OR CLIMBING STAIRS. CONTINUES TO USE ADVAIR HFA 230-21 2 PUFFS B.I.D. AND COMBIVENT RESPIMAT 1 PUFF Q.I.D. [facility] Medical History Acute bronchitis and bronchiolitis Myocardial infarct Hypoxemia requiring supplemental oxygen COPD (chronic obstructive pulmonary disease) Surgical History History of appendectomy Social History Household Members: Spouse Housing: House Do you presently have visiting nurse or other home services: No Patient Tobacco Use Status: Former Tobacco user service: Yes Current occupational status: retired Review of Systems Const All systems reviewed & are unremarkable except as noted in HPI and below Eyes Reports no additional complaints ENT Reports no additional complaints Card Denies chest pain, Denies irregular heart rhythm and Reports leg edema (Since on prednisone) Resp Reports as per HPI GI Reports no additional complaints Reports no additional complaints Musc Reports no additional complaints Skin/Breast Reports system reviewed and no additional complaints, except as documented Neuro Reports no additional complaints Psych Reports no additional complaints Physical Exam Vital Signs: Last Vital Signs Pulse 70 08/18/23 13:41 BP 96/60 08/18/23 13:41 Pulse Ox 98 08/18/23 13:41 Oxygen Delivery Method Nasal Cannula 08/18/23 13:41 Oxygen Flow Rate 2 08/18/23 13:41 BMI result Body Mass Index 22.8 Const General: comfortable, no acute distress, alert and awake Orientation/consciousness: patient oriented x3 HEENT Head: Yes normal to inspection General nose exam: No nasal polyps present and No nasal discharge present Face and sinus: Yes sinuses nontender Mouth: oropharynx normal Throat: Yes posterior oropharynx normal Eyes General: appearance normal, both eyes and all related structures Neck Neck: Yes normal visual inspection, Yes no lymphadenopathy, Yes trachea midline and Yes no JVD Thyroid: Thyroid normal Chest Chest palpation & inspection: normal inspection of the chest, normal palpation of entire chest wall and no tenderness Resp Other: Percussion note is hyper-resonant, breath sounds are equal on both sides slightly prolonged expiratory phase. No audible wheezes ,or crepitations . Cardio Palpation: normal PMI Rate: regular rate Rhythm: regular rhythm Heart sounds: no gallops and no murmurs Peripheral pulses: Peripheral pulses 2+ throughout GI Palpation (GI): Soft to palpation, nontender, No hepatosplenomegaly present and no masses Auscultation: normal bowel sounds Back/Spine/Pelvis Thoracic/Lumbar Spine: thoracic and lumbar spine normal to inspection Skin General skin exam: no rashes or lesions noted Neuro General: patient oriented x3 and no focal motor deficits Cranial nerves: Yes CN's II-XII intact bilaterally Extrem General: Yes normal to inspection, Yes no calf tenderness and Yes edema (ONLY TRACE OF EDEMA AROUND THE ANKLES , compressive socks are helping ) Psych Appearance: grossly normal and well kempt Speech and movement: Normal speech and movement present Assessment & Plan Assessment & Plan (1) COPD (chronic obstructive pulmonary disease): Comment: COPD SEEMS TO BE QUITE STABLE. HE IS ADVISED TO CONTINUE HIS REGULAR MAINTENANCE REGIMEN,as follows : TX: ADVAIR HFA 230 / 21 2 INHALATION B.I.D., SPIRIVA RESPIMAT 2 INHALATION DAILY, COMBIVENT RESPIMAT 1 INHALATION Q.6 HOURS P.R.N.. Code(s): J44.9 - Chronic obstructive pulmonary disease, unspecified (2) Hypoxemia requiring supplemental oxygen: Comment: HYPOXEMIA IS CORRECTED WITH OXYGEN SUPPLEMENTATION, ADVISED TO CONTINUE USING O2 2 L/MINUTE AT NIGHT, AND 3 L/MINUTE WITH THE PORTABLE UNIT FOR ANY PHYSICAL WORK OR GOING OUTDOORS. Code(s): R09.02 - Hypoxemia; Z99.81 - Dependence on supplemental oxygen Coding Level of Care Code Est Pt Level 3 (59264) Diagnoses COPD (chronic obstructive pulmonary disease) J44.9 Hypoxemia requiring supplemental oxygen R09.02; Z99.81
== END 2023-08-18 13:59 | disposition home or self-care (01) ==
PROVIDERS: PCP Internal Medicine; Visit Provider Internal Medicine
DX: J44.9 Chronic obstructive pulmonary disease, unspecified (principal); R09.02 Hypoxemia; Z99.81 Dependence on supplemental oxygen
CPT/HCPCS: 99213

== ENCOUNTER → 2023-08-18 13:24 | Outpatient (BNVA) | payer MEDICARE, OTHER, SELFPAY | PROVIDERS: Visit Provider Internal Medicine | DX: J44.9 Chronic obstructive pulmonary disease, unspecified (principal); R09.02 Hypoxemia; Z99.81 Dependence on supplemental oxygen | CPT/HCPCS: 99212 ==

== ENCOUNTER 2024-02-16 13:04 | Outpatient (AMB) | payer MEDICARE, OTHER, SELFPAY ==
--- NOTE | 2024-02-16 13:19 | A.OFFVIS_ITS ---
Intake Vital Signs 02/16/24 13:20 Height 5 ft 10 in Weight 173 lb 1.006 oz BMI 24.8 BP 122/68 Blood Pressure Location Lt brachial Position Sitting Pulse 78 Pulse Source Pulse Oximeter Pulse Oximetry (%) 96 Oxygen Delivery Method Nasal Cannula Oxygen Flow Rate 3 Intake Visit Reasons: COPD Intake Note: pt is here for follow up and stated he was dx with stomach cancer in September and is taking a cancer pill every day. He also states he is short of breath, which he knows could be part of cancer tx but he finds himself panting even on 3 liters, and he checks his o2 and it is in mid 90's but he is short of breath. 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: No Allergies No Known Allergies Allergy (Mild, Verified 02/16/24 13:44) NOT APPLICABLE Medication List - Last Reconciled 02/16/24 by Michael Mcqueen MD atenolol 100 mg PO BEDTIME atorvastatin 20 mg PO BEDTIME fluticasone propion-salmeterol 230-21 mcg/actuation (Advair HFA) 2 puffs inhalation BID imatinib 400 mg PO DAILY ipratropium-albuterol 20-100 mcg/actuation (Combivent Respimat) 1 puff inhalation QID lisinopril-hydrochlorothiazide 20-25 mg 1 tab PO DAILY omeprazole 20 mg PO BID sildenafil 50 mg PO DAILY PRN tiotropium bromide 2.5 mcg/actuation (Spiriva Respimat) 2 puffs inhalation QAM Do you need a note to return to daycare/school/sports/work: No HPI COPD HPI Details Sergio 74 years old very pleasant gentleman , comes today after 6 months for his routine pulmonary follow-up. During the interim. He has been diagnosed to have carcinoma of the stomach, which is now being treated with chemotherapy . His appetite is improved and he has put on some weight. Initially he was worked up for anemia and now his hemoglobin has remained stable. He is using his oxygen 24 hours a day. When he does some physical work he feels more short of breath than usual. And has a feeling that he can not take deep breaths. However his O2 sat remains in the normal range. He is using all his inhalers well, denies any cough or wheezing attacks. [facility] Medical History (Updated 02/16/24 @ 13:50 by Michael Mcqueen MD) Carcinoma of stomach Acute bronchitis and bronchiolitis Myocardial infarct Hypoxemia requiring supplemental oxygen COPD (chronic obstructive pulmonary disease) Surgical History History of appendectomy Social History Household Members: Spouse Housing: House Do you presently have visiting nurse or other home services: No Comment: [facility] [place] Patient Tobacco Use Status: Former Tobacco user service: Yes Current occupational status: retired Review of Systems Const All systems reviewed & are unremarkable except as noted in HPI and below Eyes Reports no additional complaints ENT Reports no additional complaints Card Denies chest pain, Denies irregular heart rhythm and Reports leg edema (Since on prednisone) Resp Reports as per HPI GI Reports no additional complaints Reports no additional complaints Musc Reports no additional complaints Skin/Breast Reports system reviewed and no additional complaints, except as documented Neuro Reports no additional complaints Psych Reports no additional complaints Physical Exam Vital Signs: Last Vital Signs Pulse 78 02/16/24 13:20 BP 122/68 02/16/24 13:20 Pulse Ox 96 02/16/24 13:20 Oxygen Delivery Method Nasal Cannula 02/16/24 13:20 Oxygen Flow Rate 3 02/16/24 13:20 BMI result Body Mass Index 24.8 Const General: comfortable, no acute distress, alert and awake Orientation/consciousness: patient oriented x3 HEENT Head: Yes normal to inspection General nose exam: No nasal polyps present and No nasal discharge present Face and sinus: Yes sinuses nontender Mouth: oropharynx normal Throat: Yes posterior oropharynx normal Eyes General: appearance normal, both eyes and all related structures Neck Neck: Yes normal visual inspection, Yes no lymphadenopathy, Yes trachea midline and Yes no JVD Thyroid: Thyroid normal Chest Chest palpation & inspection: normal inspection of the chest, normal palpation of entire chest wall and no tenderness Resp Other: Percussion note is hyper-resonant, breath sounds are equal on both sides slightly prolonged expiratory phase. No audible wheezes ,or crepitations . Cardio Palpation: normal PMI Rate: regular rate Rhythm: regular rhythm Heart sounds: no gallops and no murmurs Peripheral pulses: Peripheral pulses 2+ throughout GI Palpation (GI): Soft to palpation, nontender, No hepatosplenomegaly present and no masses Auscultation: normal bowel sounds Back/Spine/Pelvis Thoracic/Lumbar Spine: thoracic and lumbar spine normal to inspection Skin General skin exam: no rashes or lesions noted Neuro General: patient oriented x3 and no focal motor deficits Cranial nerves: Yes CN's II-XII intact bilaterally Extrem General: Yes normal to inspection, Yes no calf tenderness and Yes edema (ONLY TRACE OF EDEMA AROUND THE ANKLES , compressive socks are helping ) Psych Appearance: grossly normal and well kempt Speech and movement: Normal speech and movement present Assessment & Plan Assessment & Plan (1) COPD (chronic obstructive pulmonary disease): Comment: COPD SEEMS TO BE QUITE STABLE. HE IS ADVISED TO CONTINUE HIS REGULAR MAINTENANCE REGIMEN,as follows : Code(s): J44.9 - Chronic obstructive pulmonary disease, unspecified Plan: [place]: ADVAIR HFA 230 / 21 2 INHALATION B.I.D., SPIRIVA RESPIMAT 2 INHALATION DAILY, COMBIVENT RESPIMAT 1 INHALATION Q.6 HOURS P.R.N.. (2) Hypoxemia requiring supplemental oxygen: Comment: HYPOXEMIA IS CORRECTED WITH OXYGEN SUPPLEMENTATION, Code(s): R09.02 - Hypoxemia; Z99.81 - Dependence on supplemental oxygen Plan: ADVISED TO CONTINUE USING O2 2 L/MINUTE AT NIGHT, AND 3 L/MINUTE WITH THE PORTABLE UNIT FOR ANY PHYSICAL WORK OR GOING OUTDOORS. 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 But he was told that there was no has spread to the other organs. Patient is not a surgical case at this time. Being treated with chemotherapy Code(s): C16.9 - Malignant neoplasm of stomach, unspecified Plan: Continue treatments at [facility]. Coding Level of Care Code Est Pt Level 3 (77827) Diagnoses COPD (chronic obstructive pulmonary disease) J44.9 Hypoxemia requiring supplemental oxygen R09.02; Z99.81 Carcinoma of stomach C16.9
[2024-02-16 13:20] VITALS: BP 122/68; PULSE 78; O2SAT 96; BMI 24.8
== END 2024-02-16 13:45 | disposition home or self-care (01) ==
PROVIDERS: PCP Internal Medicine; Visit Provider Internal Medicine
DX: J44.9 Chronic obstructive pulmonary disease, unspecified (principal); R09.02 Hypoxemia; Z99.81 Dependence on supplemental oxygen; C16.9 Malignant neoplasm of stomach, unspecified
CPT/HCPCS: 99213

== ENCOUNTER → 2024-02-16 13:04 | Outpatient (BNVA) | payer MEDICARE, OTHER, SELFPAY | PROVIDERS: PCP Internal Medicine; Visit Provider Internal Medicine | DX: J44.9 Chronic obstructive pulmonary disease, unspecified (principal); R09.02 Hypoxemia; Z99.81 Dependence on supplemental oxygen | CPT/HCPCS: 99212 ==

== ENCOUNTER 2024-06-20 09:44 | Outpatient (AMB) | payer MEDICARE, OTHER, SELFPAY ==
[2024-06-20 09:53] VITALS: BP 110/58; PULSE 77; O2SAT 93; BMI 24.4
--- NOTE | 2024-06-20 09:53 | A.OFFVIS_ITS ---
Vital Signs 06/20/24 09:53 Height 5 ft 10 in Weight 169 lb 12.095 oz BMI 24.4 BP 110/58 L Blood Pressure Location Lt brachial Position Sitting Pulse 77 Pulse Source Pulse Oximeter Pulse Oximetry (%) 93 Oxygen Delivery Method Nasal Cannula Oxygen Flow Rate 3 Intake Visit Reasons: COPD Intake Note: pt is here for follow up and states he has been struggling with breathing and coughing, he thinks allergies are contributing. Wound Care Specialist Required: No Allergies No Known Allergies Allergy (Mild, Verified 06/20/24 10:13) NOT APPLICABLE Medication List - Last Reconciled 06/20/24 by Michael Mcqueen MD atenolol 100 mg PO BEDTIME atorvastatin 20 mg PO BEDTIME fluticasone propion-salmeterol 230-21 mcg/actuation (Advair HFA) 2 puffs inhalation BID imatinib 400 mg PO DAILY ipratropium-albuterol 20-100 mcg/actuation (Combivent Respimat) 1 puff inhalation QID lisinopril-hydrochlorothiazide 20-25 mg 1 tab PO DAILY omeprazole 20 mg PO BID sildenafil 50 mg PO DAILY PRN tiotropium bromide 2.5 mcg/actuation (Spiriva Respimat) 2 puffs inhalation QAM Do you need a note to return to daycare/school/sports/work: No HPI HPI COPD: Details: GANGA, 74 YEARS OLD VERY PLEASANT GENTLEMAN IS HERE FOR HIS ROUTINE FOLLOW-UP AFTER 6 MONTHS. HE IS A CASE OF COPD FOR MANY YEARS, WHICH HAS BEEN STABLE. DURING THE SUMMER MONTHS HE HAS HAD INCREASED NASAL CONGESTION SECONDARY TO ALLERGIES, AND WITH THAT HE HAS HAD SOMEWHAT INCREASED COUGH. HIS BREATHING SOMETIMES IS WORSE THAN OTHER TIMES, AND IT ALL DEPENDS UPON THE A IR QUALITY. HE CONTINUES TO USE ADVAIR HFA AND SPIRIVA RESPIMAT, AND THEN COMBIVENT INHALER ONLY NEEDED. HE IS ON OXYGEN 24 HOURS A DAY, MOSTLY 2 L/MINUTE AT REST AND 3 L/MINUTE WHEN OUTDOORS. HIS APPETITE IS FAIR. HE IS BEING TREATED FOR ADENO CARCINOMA OF THE STOMACH WITH CHEMOTHERAPY WHICH HE TOLERATES WELL, EXCEPT FOR SOME NAUSEA FOR A FEW DAYS AFTER TAKING THE PILL. [facility] Medical History (Updated 06/20/24 @ 10:22 by Michael Mcqueen MD) Allergic rhinitis Carcinoma of stomach Acute bronchitis and bronchiolitis Myocardial infarct Hypoxemia requiring supplemental oxygen COPD (chronic obstructive pulmonary disease) Surgical History History of appendectomy Social History Household Members: Spouse Housing: House Do you presently have visiting nurse or other home services: No Comment: C Patient Tobacco Use Status: Former Tobacco user service: Yes Current occupational status: retired Review of Systems Const All systems reviewed & are unremarkable except as noted in HPI and below Eyes Reports no additional complaints ENT Reports no additional complaints Card Denies chest pain, Denies irregular heart rhythm and Reports leg edema (Since on prednisone) Resp Reports as per HPI GI Reports no additional complaints Reports no additional complaints Musc Reports no additional complaints Skin/Breast Reports system reviewed and no additional complaints, except as documented Neuro Reports no additional complaints Psych Reports no additional complaints Physical Exam Vital Signs: Last Vital Signs Pulse 77 06/20/24 09:53 BP 110/58 L 06/20/24 09:53 Pulse Ox 93 06/20/24 09:53 Oxygen Delivery Method Nasal Cannula 06/20/24 09:53 Oxygen Flow Rate 3 06/20/24 09:53 BMI result Body Mass Index 24.4 Const General: comfortable, no acute distress, alert and awake Orientation/consciousness: patient oriented x3 HEENT Head: Yes normal to inspection General nose exam: No nasal polyps present and No nasal discharge present Face and sinus: Yes sinuses nontender Mouth: oropharynx normal Throat: Yes posterior oropharynx normal Eyes General: appearance normal, both eyes and all related structures Neck Neck: Yes normal visual inspection, Yes no lymphadenopathy, Yes trachea midline and Yes no JVD Thyroid: Thyroid normal Chest Chest palpation & inspection: normal inspection of the chest, normal palpation of entire chest wall and no tenderness Resp Other: Percussion note is hyper-resonant, breath sounds are equal on both sides slightly prolonged expiratory phase. No audible wheezes ,or crepitations . Cardio Palpation: normal PMI Rate: regular rate Rhythm: regular rhythm Heart sounds: no gallops and no murmurs Peripheral pulses: Peripheral pulses 2+ throughout GI Palpation (GI): Soft to palpation, nontender, No hepatosplenomegaly present and no masses Auscultation: normal bowel sounds Back/Spine/Pelvis Thoracic/Lumbar Spine: thoracic and lumbar spine normal to inspection Skin General skin exam: no rashes or lesions noted Neuro General: patient oriented x3 and no focal motor deficits Cranial nerves: Yes CN's II-XII intact bilaterally Extrem General: Yes normal to inspection, Yes no calf tenderness and Yes edema (ONLY TRACE OF EDEMA AROUND THE ANKLES , compressive socks are helping ) Psych Appearance: grossly normal and well kempt Speech and movement: Normal speech and movement present Assessment & Plan Assessment & Plan (1) COPD (chronic obstructive pulmonary disease): Comment: COPD SEEMS TO BE QUITE STABLE. HE IS ADVISED TO CONTINUE HIS REGULAR MAINTENANCE REGIMEN, as follows : Code(s): J44.9 - Chronic obstructive pulmonary disease, unspecified Category: Medical Plan: FLUTICASONE-SALMETEROL 230-21 , HFA 2 PUFFS B.I.D.. SPIRIVA RESPIMAT 2.5 . 1 INHALATION B.I.D. COMBIVENT RESPIMAT 1 INHALATION Q 6 HOURS P.R.N.. (2) Hypoxemia requiring supplemental oxygen: Comment: HYPOXEMIA , , CHRONIC , CORRECTED WITH OXYGEN SUPPLEMENTATION, Code(s): R09.02 - Hypoxemia; Z99.81 - Dependence on supplemental oxygen Category: Medical Plan: CONTINUE O2 3 L/MINUTE WITH PORTABLE UNIT. AND 2 L/MINUTE WHEN RESTING AT HOME OR SLEEP (3) Allergic rhinitis: Comment: HE DOES HAVE MILD SYMPTOMS OF ALLERGIC RHINITIS, WORSE OFF AND ON, HE IS BUT WHEN HE TAKES CLARITIN. Code(s): J30.9 - Allergic rhinitis, unspecified Category: Medical Plan: OK TO USE CLARITIN 10 MG ONCE A DAY P.R.N. (4) Carcinoma of stomach: Comment: Has been diagnosed to have adeno carcinoma of the stomach, Patient is not a surgical case at this time. Being treated with chemotherapy, which he is tolerating well Code(s): C16.9 - Malignant neoplasm of stomach, unspecified Category: Medical Plan: Continue the same Coding Level of Care Code Est Pt Level 3 (67930) Diagnoses COPD (chronic obstructive pulmonary disease) J44.9 Hypoxemia requiring supplemental oxygen R09.02; Z99.81 Allergic rhinitis J30.9 Carcinoma of stomach C16.9
== END 2024-06-20 10:16 | disposition home or self-care (01) ==
PROVIDERS: PCP Internal Medicine; Visit Provider Internal Medicine
DX: J44.9 Chronic obstructive pulmonary disease, unspecified (principal); R09.02 Hypoxemia; Z99.81 Dependence on supplemental oxygen; J30.9 Allergic rhinitis, unspecified; C16.9 Malignant neoplasm of stomach, unspecified
CPT/HCPCS: 99213

== ENCOUNTER → 2024-06-20 09:44 | Outpatient (BNVA) | payer MEDICARE, OTHER, SELFPAY | PROVIDERS: PCP Internal Medicine; Visit Provider Internal Medicine | DX: J44.9 Chronic obstructive pulmonary disease, unspecified (principal); R09.02 Hypoxemia; J30.9 Allergic rhinitis, unspecified; C16.9 Malignant neoplasm of stomach, unspecified; Z99.81 Dependence on supplemental oxygen | CPT/HCPCS: 99212 ==

== ENCOUNTER 2025-01-24 10:48 | Outpatient (AMB) | payer MEDICARE, OTHER, SELFPAY ==
[2025-01-24 11:07] VITALS: BP 102/52; PULSE 87; O2SAT 99; BMI 24.2
--- NOTE | 2025-01-24 11:07 | MHC.OFFVIS ---
Vital Signs 01/24/25 11:07 Height 5 ft 10 in Weight 168 lb 10.458 oz BMI 24.2 BP 102/52 L Blood Pressure Location Lt brachial Position Sitting Pulse 87 Pulse Source Pulse Oximeter Pulse Oximetry (%) 99 Oxygen Delivery Method Nasal Cannula Oxygen Flow Rate 3 Intake Visit Reasons: COPD Intake Note: pt is here for follow up and states he is feeling that his breathing is getting terrible Public Health Veterinarian Required: No Allergies No Known Allergies Allergy (Mild, Verified 01/24/25 11:30) NOT APPLICABLE Medication List - Last Reconciled 01/24/25 by Michael Mcqueen MD atenolol 100 mg PO BEDTIME atorvastatin 20 mg PO BEDTIME fluticasone propion-salmeterol 230-21 mcg/actuation (Advair HFA) 2 puffs inhalation BID imatinib 400 mg PO DAILY imatinib 400 mg PO DAILY ipratropium-albuterol 20-100 mcg/actuation (Combivent Respimat) 1 puff inhalation QID lisinopril-hydrochlorothiazide 20-25 mg 1 tab PO DAILY omeprazole 20 mg PO BID sildenafil 50 mg PO DAILY PRN tiotropium bromide 2.5 mcg/actuation (Spiriva Respimat) 2 puffs inhalation QAM Do you need a note to return to daycare/school/sports/work: No HPI HPI COPD: Details: 75 years old gentleman a long-time, patient with chronic obstructive pulmonary disease is here for 6 months follow-up. He gets short of breath more easily than before. Has intermittent cough and wheezing. Shortness of breath on exertion is getting somewhat worse. Uses O2 2 L/minute continuously and when he goes outdoors he has to increase to 3 L/minute. Sleeps fairly well. He gets stasis edema of the lower extremities and has to take Lasix which he is using intermittently because if he uses every day he starts having cramps in the legs. In the past 6 months or so he has had no respiratory infection. He is being treated for cancer of the prostate and also for the Stomach cancer, currently on imatinib 400 mg p.o. daily [facility] Medical History Allergic rhinitis Carcinoma of stomach Acute bronchitis and bronchiolitis Myocardial infarct Hypoxemia requiring supplemental oxygen COPD (chronic obstructive pulmonary disease) Surgical History History of appendectomy Social History Household Members: Spouse Housing: House Do you presently have visiting nurse or other home services: No Comment: [facility] [place] Patient Tobacco Use Status: Former Tobacco user service: Yes Current occupational status: retired Review of Systems Const All systems reviewed & are unremarkable except as noted in HPI and below Eyes Reports no additional complaints ENT Reports no additional complaints Card Denies chest pain, Denies irregular heart rhythm and Reports leg edema (Since on prednisone) Resp Reports as per HPI GI Reports no additional complaints Reports no additional complaints Musc Reports no additional complaints Skin/Breast Reports system reviewed and no additional complaints, except as documented Neuro Reports no additional complaints Psych Reports no additional complaints Physical Exam Vital Signs: Last Vital Signs Pulse 87 01/24/25 11:07 BP 102/52 L 01/24/25 11:07 Pulse Ox 99 01/24/25 11:07 Oxygen Delivery Method Nasal Cannula 01/24/25 11:07 Oxygen Flow Rate 3 01/24/25 11:07 BMI result Body Mass Index 24.2 Const General: comfortable, no acute distress, alert and awake Orientation/consciousness: patient oriented x3 HEENT Head: Yes normal to inspection General nose exam: No nasal polyps present and No nasal discharge present Face and sinus: Yes sinuses nontender Mouth: oropharynx normal Throat: Yes posterior oropharynx normal Eyes General: appearance normal, both eyes and all related structures Neck Neck: Yes normal visual inspection, Yes no lymphadenopathy, Yes trachea midline and Yes no JVD Thyroid: Thyroid normal Chest Chest palpation & inspection: normal inspection of the chest, normal palpation of entire chest wall and no tenderness Resp Other: Percussion note is hyper-resonant, breath sounds are equal on both sides slightly prolonged expiratory phase. No audible wheezes ,or crepitations . Cardio Palpation: normal PMI Rate: regular rate Rhythm: regular rhythm Heart sounds: no gallops and no murmurs Peripheral pulses: Peripheral pulses 2+ throughout GI Palpation (GI): Soft to palpation, nontender, No hepatosplenomegaly present and no masses Auscultation: normal bowel sounds Back/Spine/Pelvis Thoracic/Lumbar Spine: thoracic and lumbar spine normal to inspection Skin General skin exam: no rashes or lesions noted Neuro General: patient oriented x3 and no focal motor deficits Cranial nerves: Yes CN's II-XII intact bilaterally Extrem General: Yes normal to inspection, Yes no calf tenderness and Yes edema (CHRONIC EDEMA OF LEGS AND AROUND THE ANKLES ) Psych Appearance: grossly normal and well kempt Speech and movement: Normal speech and movement present Assessment & Plan Assessment & Plan (1) COPD (chronic obstructive pulmonary disease): Comment: COPD SEEMS TO BE QUITE STABLE. INCREASE SHORTNESS OF BREATH ON EXERTION IS DUE TO COMBINATION OF MULTIPLE FACTORS, INCLUDING GENERAL WEAKNESS. Code(s): J44.9 - Chronic obstructive pulmonary disease, unspecified Category: Medical Plan: CONTINUE TO USE SPIRIVA RESPIMAT 2 INHALATIONS DAILY, AND COMBIVENT RESPIMAT 1 INHALATION Q 6 HOURS P.R.N. ADVAIR HFA 230-212 PUFFS B.I.D. (2) Hypoxemia requiring supplemental oxygen: Comment: CHRONIC RESPIRATORY FAILURE WITH HYPOXEMIA , HE NEEDS O2, CONTINUOUSLY. Code(s): R09.02 - Hypoxemia; Z99.81 - Dependence on supplemental oxygen Category: Medical Plan: ADVISED TO USE O2 2 L/MINUTE WHEN AT HOME AND RESTING. AND 3 L/MINUTE WITH PORTABLE UNIT WHEN. OUTDOORS OR EXERCISE (3) Allergic rhinitis: Comment: HE DOES HAVE MILD SYMPTOMS OF ALLERGIC RHINITIS, WORSE ,OFF AND ON, Code(s): J30.9 - Allergic rhinitis, unspecified Category: Medical Plan: OK TO USE LORATADINE 10 MG ONCE A DAY P.R.N. (4) Carcinoma of stomach: Comment: Has been diagnosed to have adeno carcinoma of the stomach, Patient is not a surgical case at this time. Being treated with IMMUNO THERAPY , IMATINIB 400 MG DAILY Code(s): C16.9 - Malignant neoplasm of stomach, unspecified Category: Medical Plan: CONTINUE REGULAR FOLLOW-UP AT [facility]. Coding Level of Care Code Est Pt Level 3 (65757) Diagnoses COPD (chronic obstructive pulmonary disease) J44.9 Hypoxemia requiring supplemental oxygen R09.02; Z99.81 Allergic rhinitis J30.9 Carcinoma of stomach C16.9
--- OUTSIDE RECORDS SUMMARY | 2025-01-24 13:14 | XMS_ITS | Continuity of Care Document ---
Author Organization [facility] ter Address [address] [place] [id number]- Care Team Providers Care District Branch Manager Name Role Phone Clive Harris MD Primary Care Physician Encounter 01/13/25 - 01/14/[address] [address]- Attending Physician: Not on Staff, Attending MD Referring Physician: Not on Staff, Referring MD Encounter Type: [facility]RI Allergies, Adverse Reactions, Alerts No Known Allergies Immunizations Given and Recorded Vaccine Date Status Refusal Reason RSV vaccine preF3, recombinant 09/22/23 Recorded SARS-CoV-2(COVID-19)mRNA-LNP vac([id number]) 09/01/23 Recorded influenza virus vaccine, inactivated 08/25/23 Price rded influenza virus vaccine, inactivated 08/26/22 Price rded influenza virus vaccine, inactivated 09/24/21 Price rded influenza virus vaccine, inactivated 09/04/20 Give n influenza virus vaccine, inactivated 10/10/19 Give n influenza virus vaccine, inactivated 10/06/18 Give n influenza virus vaccine, inactivated 10/02/17 Give n influenza virus vaccine, inactivated 10/01/16 Give n influenza virus vaccine, inactivated 09/27/15 Give n influenza virus vaccine, inactivated 09/27/14 Give n influenza virus vaccine, inactivated 09/02/13 Give n [id number] bivalent booster vax 08/26/22 Recorded SARS-CoV-2 (COVID-19) mRNA-1273 vaccine 02/26/22 R ecorded SARS-CoV-2 (COVID-19) mRNA-1273 vaccine 09/24/21 R ecorded SARS-CoV-2 (COVID-19) mRNA-1273 vaccine 01/21/21 R ecorded SARS-CoV-2 (COVID-19) mRNA-1273 vaccine 12/23/20 R ecorded tetanus/diphtheria/pertussis, acel(Tdap) 03/24/16 Recorded pneumococcal 13-valent vaccine 03/27/15 Given Pneumococcal Vacc (oldterm) 09/02/13 Given FluLaval (oldterm) 1 09/28/12 Given FluLaval (oldterm) 2 10/07/11 Given FluLaval (oldterm) 09/07/10 Given Influenza Virus Vaccine (oldterm) 3 08/17/09 Given Influenza Virus Vaccine (oldterm) 4 09/24/07 Given Influenza Virus Vaccine (oldterm) 5 10/27/06 Given tetanus-diphtheria toxoids (Td) 01/09/06 Given tetanus-diphtheria toxoids (Td) 11/23/95 Given 1Admin Note: [facility] 2Admin Note: [facility] 3Admin Note: GIVEN BY LIVE DOC BY SMITH 4Admin Note: given in clinic 5Admin Note: GIVEN IN CLINIC SHAM Medications Advair HFA 230 mcg / 21 mcg 2 puffs, Inhalation, 2 times a day, # 60 each, 0 Refills, Maintenance, 04/01/17 10:57:13 AM EDT, Aerosol Start Date: 04/01/17 Status: Ordered Quantity: 60.0 Unit: each Repeat number: 1 atenolol 100 mg oral tablet 1 tablet, By Mouth, Daily, # 90 tablet, 3 Refills, Maintenance, 02/02/24 8:47:00 AM EDT, [facility], 175, cm, 01/19/24 9:28:00 EST, Height, 74.8, kg, 01/19/24 9:43:00 EST, Dry Weight Start Date: 02/02/24 Status: Ordered Quantity: 90.0 Unit: tablet Repeat number: 1 atorvastatin 20 mg oral tablet 1 tablet, By Mouth, Daily, # 90 tablet, 3 Refills, Maintenance, 02/02/24 8:47:00 AM EDT, [facility], 175, cm, 01/19/24 9:28:00 EST, Height, 74.8, kg, 01/19/24 9:43:00 EST, Dry Weight Start Date: 02/02/24 Status: Ordered Quantity: 90.0 Unit: tablet Repeat number: 1 Combivent Respimat CFC free 100 mcg-20 mcg/inh inhalation aerosol 1 puffs, Inhalation, 4 times a day, # 4 Gm, 0 Refills, Maintenance, 01/24/14 11:08:45 AM EST, Aerosol Start Date: 01/24/14 Status: Ordered Quantity: 4.0 Unit: g Repeat number: 1 furosemide 20 mg oral tablet 1, tablet, By Mouth, Daily, # 90 tablet, Refills 3, Maintenance, 06/06/24 8:09:00 AM EDT, Route to Pharmacy Electronically, [facility], 175, cm, 05/27/24 9:31:00 EDT, Height, 76.8, kg, 05/27/24 9:31:00 EDT, Dry Weight Start Date: 06/06/24 Status: Ordered Quantity: 90.0 Unit: tablet Repeat number: 1 hydrochlorothiazide-lisinopril 25 mg-20 mg oral tablet 1 tablet, By Mouth, Daily, # 90 tablet, 1 Refills, Maintenance, 12/23/24 7:20:00 AM EST, [facility], 0, 1 tablet By Mouth Daily, 175, cm, 10/17/24 14:45:00 EST, Height, 79.3, kg, 10/17/24 14:54:00 EST, Dry Weight Start Date: 12/23/24 Status: Ordered Quantity: 90.0 Unit: tablet Repeat number: 2 imatinib 400 mg oral tablet See Instructions, TAKE 1 TABLET DAILY WITH MEALS AND WITH PLENTY OF WATER., # 90 tablet, 1 Refills,Maintenance, 01/09/25 10:44:00 PM EST, [facility], 175, cm, 12/27/24 9:55:00 EST, Height, 77.5, kg, 12/27/24 9:55:00 EST, Dry Weight Start Date: 01/09/25 Status: Ordered Quantity: 90.0 Unit: tablet Repeat number: 1 ondansetron 8 mg oral tablet 1 tablet = 8 mg, By Mouth, Every 8 hours, PRN as needed for nausea/vomiting, # 30 tablet, 1 Refills, Maintenance, 11/06/23 9:13:00 AM EST, Tablet, [id number], Partial fill upon patient request if the prescription is for a schedule II opioid drug., 175, cm, 10/29/23 14:07:00 EST, Height, 69.8, kg, 10/29/23 14:07:00 EST, Dry Weight Start Date: 11/06/23 Status: Ordered Quantity: 30.0 Unit: tablet Repeat number: 2 Readi-Cat 2 Smoothie Creamy Vanilla 2% oral suspension See Instructions, Use as directed, # 900 mL, 0 Refills, Maintenance, 12/28/24 9:32:00 AM EST, [facility] #[id number], Partial fill upon patient request if the prescription is for a schedule II opioid drug., Use as directed, 175, cm, 12/27/24 9:55:00 EST, Height, 77.5, kg, 12/27/24 9:55:00 EST, Dry Weight Start Date: 12/28/24 Status: Ordered Quantity: 900.0 Unit: mL Repeat number: 1 sildenafil 50 mg oral tablet 1 tablet, By Mouth, Daily, BEFORE SEXUAL ACTIVITY., # 15 tablet, 3 Refills, Maintenance, 03/31/24 9:27:00 AM EDT, [facility], 175, cm, 03/25/24 11:03:00 EDT, Height, 78.7, kg, 03/25/24 11:03:00 EDT, Dry Weight Start Date: 03/31/24 Stop Date: 03/31/24 Status: Ordered Quantity: 15.0 Unit: tablet Repeat number: 1 Spiriva = 18 mcg, Inhalation, Daily, 0 Refills, Maintenance, 10/17/20 9:20:00 AM EST, Partial fill upon patient request Start Date: 10/17/20 Status: Ordered Repeat number: 1 Vitamin B12 1000 mcg oral tablet 1 tablet = 1,000 mcg, By Mouth, Daily, # 90 tablet, 3 Refills, Maintenance, 09/04/23 8:15:00 AM EDT, Tablet, [facility], Partial fill upon patient request if the prescription is for a schedule II opioid drug., 178, cm, 09/04/23 8:00:00 EDT, Height, 80, kg, 04/09/23 9:30:00 EDT, Dry Weight Start Date: 09/04/23 Status: Ordered Quantity: 90.0 Unit: tablet Repeat number: 4 Problem List Condition Confirmation Course Effective Dates Status Health Status Informant Adrenal adenoma Confirmed Active Allergic rhinitis Confirmed Active Anemia Confirmed Active BPH (benign prostatic hyperplasia) Confirmed Active CAD (coronary artery disease) Confirmed Active Chronic obstructive lung disease Confirmed Active Vitamin B 12 deficiency Confirmed Active Oxygen dependent 1 Confirmed Active Lower extremity edema Confirmed Active Sebaceous cyst 2 Confirmed Active ED (erectile dysfunction) Confirmed Active External hemorrhoids 3 Confirmed Active Malignant gastric stromal tumor Confirmed Active History of colonoscopy 4, 5 Confirmed Active History of CA (myocardial infarction) Confirmed Active HTN (hypertension) Confirmed 09/02/13 Active Hx of fracture of fibula Confirmed 03/26/10 Active Hypercholesterolemia Confirmed Active Hyperglycemia Confirmed Active Elevated PSA Confirmed Active Stress due to illness of family member Confirmed Active Tubular adenoma of colon 6, 7 Confirmed 04/08/15 Active 1Patient started on oxygen for 4 exertion by his zig zag stitcher. 2R chest and L back. R chest seen on CT scan 3colo 2014 4Colonoscopy 2022 positive multiple polyps, repeat 2025. [id number] 6Colonoscopy November 2018, 3 adenomatous polyps, repeat 2021. 7Needs repeat colonoscopy in 2017 Results Radiology Reports * Exam Date Time Procedure Performing Provider Status 01/13/25 8:46 AM MR Prostate W+W/O Co ntrast 3D Reformat Auth (Verified) Notes: (MR Prostate W+W/O Contrast 3D Reformat) Reason For Exam: Elevated prostate specific antigen [PSA];Elevated prostate specific antigen [PSA] RESULT: MR Prostate W+W/O Contrast 3D Reformat [facility] VISIT NUMBER :[id number] Patient Name: Ganga Stauffer Date of : 1950 Date of Exam: 01-13-2025 Referring Physician: Clive Burrows [facility] [address] [place] [address] Exam: MR Prostate (C-/C+) with 3D reformat CPT 52404, 53928 Room Description: [facility] 3T MRI MR Prostate (C-/C+) with 3D reformat CPT 38674, 47975 HISTORY: 74 years old male with rising PSA. Abnormal digital rectal exam with nodule of the LEFT apex. Recent diagnosis of GIST. TECHNIQUE: Noncontrast and contrast-enhanced MRI of the prostate gland was performed in a 3T MRI unit utilizing a body matrix coil and PROSTATE PROTOCOL. Dynamic pre- and postcontrast imaging was utilized. 16 cc of Dotarem contrast given IV. High resolution axial, sagittal, and coronal FSE T2, axial FSE T1, axial DWI, axial pre and multiphase dynamic postcontrast 3D FSPGR T1 pulse sequences were performed. Postprocessing on an independent workstation included creation of a 3D rotational prostate segmentation volume analysis, 3D lesion analysis, subtraction images, multiplanar reformatted images, wash-in and wash-out maps as well as computer aided detection (CAD) TraceLinkaCAD software. Findings are reported using Prostate Imaging Reporting and Data System (PI-RADS) version 2.1. COMPARISON: Enhanced CT abdomen and pelvis 08/12/2024. FINDINGS: The prostate is moderately and measures 4.9 x 4.6 x 6.1 cm. 3D processing calculated prostate volume is 74 cc. CENTRAL ZONE: No focal lesion. PERIPHERAL ZONE: There are no areas of T1 hyperintensity to suggest the presence of hemorrhage. Peripheral zone lesionthe peripheral zone exhibits multiple linear and wedge-shaped areas of T2 hypointensity without restricted diffusion likely representing the sequela of prior insults. Small T2 hyperintense nodules are noted at the apex LEFT posteromedially, of no clinical significance. No suspicious lesions. TRANSITION ZONE: Moderate transition zone enlargement with bilateral T2 hyperintense as well as T2 hypointense well circumscribed nodules, with the typical organized chaos appearance of benign prostatic hyperplasia. No suspicious focal lesion. SEMINAL VESICLES: The seminal vesicles are normal. LYMPH NODES: No enlarged pelvic or inguinal lymph nodes. VESSELS: Major pelvic vessels demonstrate normal enhancement. URINARY BLADDER: Unremarkable. PELVIS PERITONEAL CAVITY: No free fluid. COLON AND RECTUM: The visualized loops of large and small bowel are unremarkable. BONES AND SOFT TISSUES: No suspicious osseous lesion. Small bilateral hip joint effusions. Mild enhancement along the cephalad margin of the RIGHT greater trochanter consistent with enthesopathy. No evidence of hernia. Small bilateral hydroceles. IMPRESSION: 1. No multiparametric MRI evidence of clinically significant prostate cancer. PI-RADS v2.1 Category 1: Very Low (Clinically significant cancer is highly unlikely to be present). 2. No evidence of adenopathy, capsule, or seminal vesicle invasion. No suspicious osseous lesion. 3. Moderate prostatic enlargement due to BPH. 3D processing calculated prostate volume is 74 cc. REFERENCE: PI-RADS Version 2.1 Assessment Categories: Category 1: Very low - Clinically significant cancer is highly unlikely. Category 2: Low - Clinically significant cancer is unlikely. Category 3: Intermediate - Clinically significant cancer is equivocal. Category 4: High - Clinically significant cancer is likely. Category 5: Very High - Clinically significant cancer is highly likely. PI-RADS Version 2.1 Definition of Clinically Significant Cancer: Tumor with a Lewis score of 7 or more (either 4 + 3 or 3 + 4 with a prominent Lewis 4 com?ponent) and/or volume greater than 0.5 cm3 and/or extraprostatic extension. Electronically Signed By: Dony Palacios MD Dictated By: Not on Staff , KEZIA LYNN Dictated Date/Time: 01/13/25 10:20 a Reviewed By: Not on Staff , KEZIA LYNN Signed By: Not on Staff , KEZIA LYNN Signed Date/Time: 01/13/25 10:20 am Transcribed By: HATTIE Transcribed Date/Time: 01/13/25 10:20 am Social History Social History Type Response Smoking Status Former smoker, quit more than 30 days ago entered on: 01/19/24 Sex Sex Representation Male (finding) Patient Care team information Care Team Personnel Name: Clive Harris MD Position: [facility] Physician - Primary Care Member Role: PCP Address: [address] [place] [phone]- Telecom: Care Team Related Persons Name: JAVAN STAUFFER Insurance Providers Guarantor name: GANGA STAUFFER Health Plan Information #: 1 Payer: MEDICARE PART B OUTPT Member Number: NA Policy Number: NA Group Number: NA Health Plan Information #: 2 Payer: [facility] MCR A ONLY Member Number: NA Policy Number: NA Group Number: NA
--- OUTSIDE RECORDS SUMMARY | 2025-01-24 13:14 | XMS_ITS | Continuity of Care Document ---
Author Organization [facility] lt Address [address] [place] [address]- Care Team Providers Care Consumer Analyst Name Role Phone Clive Harris MD Primary Care Physician [phone] Encounter [facility] Date(s): 12/23/24 - 01/22/25 [facility] [address] [place] [address]- Encounter Type: Triage Allergies, Adverse Reactions, Alerts No Known Allergies Immunizations Given and Recorded Vaccine Date Status Refusal Reason RSV vaccine preF3, recombinant 09/22/23 Recorded SARS-CoV-2(COVID-19)mRNA-LNP vac([id number]) 09/01/23 Recorded influenza virus vaccine, inactivated 08/25/23 [...] influenza virus vaccine, inactivated 09/02/13 Give n [id number] bivalent booster vax 08/26/22 Recorded SARS-CoV-2 (COVID-19) [...] tetanus-diphtheria toxoids (Td) 11/23/95 Given 1Admin Note: [facility] 2Admin Note: [facility] 3Admin Note: GIVEN BY LIVE DOC BY [...] Refills, Maintenance, 02/02/24 8:47:00 AM EDT, [facility], 175, cm, 01/19/24 9:28:00 EST, Height, 74.8, kg, 01/19/24 9:43:00 EST, Dry Weight Start Date: 02/02/24 Status: Ordered Quantity: 90.0 Unit: tablet Repeat number: 1 atorvastatin 20 mg oral tablet 1 tablet, By Mouth, Daily, # 90 tablet, 3 Refills, Maintenance, 02/02/24 8:47:00 AM EDT, [facility], 175, cm, 01/19/24 9:28:00 EST, [...] 8:09:00 AM EDT, Route to Pharmacy Electronically, [facility], 175, cm, 05/27/24 9:31:00 EDT, Height, 76.8, kg, 05/27/24 9:31:00 EDT, Dry Weight Start Date: 06/06/24 Status: Ordered Quantity: 90.0 Unit: tablet Repeat number: 1 hydrochlorothiazide-lisinopril 25 mg-20 mg oral tablet 1 tablet, By Mouth, Daily, # 90 tablet, 1 Refills, Maintenance, 12/23/24 7:20:00 AM EST, [facility], 0, 1 tablet By Mouth [...] Refills, Maintenance, 11/06/23 9:13:00 AM EST, Tablet, [facility] #[id number], Partial fill upon patient request if the prescription is for a schedule II opioid drug., 175, cm, 10/29/23 14:07:00 EST, Height, 69.8, kg, 10/29/23 14:07:00 EST, Dry Weight Start Date: 11/06/23 Status: Ordered Quantity: 30.0 Unit: tablet Repeat number: 2 Readi-Cat 2 Smoothie Creamy Vanilla 2% oral suspension See Instructions, Use as directed, # 900 mL, 0 Refills, Maintenance, 12/28/24 9:32:00 AM EST, [facility] #[id number], Partial fill upon patient request if the [...] colonoscopy 4, 5 Confirmed Active History of [place] (myocardial infarction) Confirmed Active HTN (hypertension) Confirmed 09/02/13 Active Hx of fracture of fibula Confirmed 03/26/10 Active Hypercholesterolemia Confirmed Active Hyperglycemia Confirmed Active Elevated PSA Confirmed Active Stress due to illness of family member Confirmed Active Tubular adenoma of colon 6, 7 Confirmed 04/08/15 Active 1Patient started on oxygen for 4 exertion by his house sitter. 2R chest and L back. R chest seen on CT scan 3colo 2014 4Colonoscopy 2022 positive multiple polyps, repeat 2025. [id number] 6Colonoscopy November 2018, 3 adenomatous polyps, repeat 2021. 7Needs repeat colonoscopy in 2017 Social History Social History Type Response Smoking Status Former smoker, quit more than 30 days ago entered on: 01/19/24 Sex Sex Representation Male (finding) Patient Care team information Care Team Personnel Name: Clive Harris MD Position: [facility] Physician - Primary Care Member Role: PCP Address: [address] [place] [id number] Telecom: Care Team Related Persons Name: JAVAN DEMARCO Insurance Providers Guarantor name: GANGA DEMARCO Health Plan Information #: 1 Payer: MEDICARE PART B OUTPT Member Number: NA Policy Number: NA Group Number: NA Health Plan Information #: 2 Payer: [employer] MCR A ONLY Member Number: NA Policy Number: NA Group Number: NA
--- OUTSIDE RECORDS SUMMARY | 2025-01-24 13:15 | XMS_ITS | Continuity of Care Document ---
Author Name [facility] Organization [facility] Care Team Providers Care Petroleum Refinery Operator Name Role Phone [facility] Unavailable Unavailable Medications Combined list of outpatient medications from Department of Defense and Veterans Affairs facilities.Medications provided include 1) outpatient medications from the last 15 months, and 2) patient-reported medications. Medication Details Route Status Patient Instructions Prescription Expires Prescription Number Last Dispense Date Ordering Provider Order Date Order Qty Source ATENOLOL (ATENOLOL), 100 MG, TABLET, ORAL, [employer] 1000 ea. BOTTLE Active [id number] 4 2023 90 Pharmac y Data Transac tion Service Facilit y ATENOLOL (ATENOLOL), 100 MG, TABLET, ORAL, [employer] 1000 ea. BOTTLE Active [id number] 4 2023 90 Pharmac y Data Transac tion Service Facilit y ATORVASTATI N CALCIUM (ATORVASTAT IN CALCIUM), 20 MG, TABLET, ORAL, APOTEX MARISABEL, 1000 ea. BOTTLE Active [id number] 4 2023 90 Pharmac y Data Transac tion Service Facilit y ATORVASTATI N CALCIUM (atorvastat in calcium), 20 MG, TABLET, ORAL, B[employer]KE PHARMACEU, 500 ea. BOTTLE Active [id number] 4 2023 90 Pharmac y Data Transac tion Service Facilit y FLUTICASONE -SALMETEROL HFA (fluticason e propionate/ salmeterol xinafoate), 230-21MCG, HFA AER AD, INHALATION, [facility], 12 g CANISTER Cancele d [id number] : 2023 0 Pharmac y Data Transac tion Service Facilit y FUROSEMIDE (furosemide ), 20 MG, TABLET, ORAL, AVKARE, 1000 ea. BOTTLE Active [id number] 4 2023 90 Pharmac y Data Transac tion Service Facilit y FUROSEMIDE (FUROSEMIDE ), 20MG, TABLET, ORAL, [facility] 1000 ea. BOTTLE Active [id number] 4 2023 15 Pharmac y Data Transac tion Service Facilit y IMATINIB MESYLATE (imatinib mesylate), 400 MG, TABLET, ORAL, AUROBINDO PHARM, 30 ea. BOTTLE Cancele d [id number] : 2023 0 Pharmac y Data Transac tion Service Facilit y IMATINIB MESYLATE (imatinib mesylate), 400 MG, TABLET, ORAL, AUROBINDO PHARM, 30 ea. BOTTLE Cancele d [id number] : 2023 0 Pharmac y Data Transac tion Service Facilit y IMATINIB MESYLATE (imatinib mesylate), 400 MG, TABLET, ORAL, AUROBINDO PHARM, 30 ea. BOTTLE Active [id number] 4 2023 30 Pharmac y Data Transac tion Service Facilit y IMATINIB MESYLATE (imatinib mesylate), 400 MG, TABLET, ORAL, [employer] 30 ea. BOTTLE Cancele d [id number] : 2023 0 Pharmac y Data Transac tion Service Facilit y IMATINIB MESYLATE (imatinib mesylate), 400 MG, TABLET, ORAL, [employer] 30 ea. BOTTLE Active [id number] 4 2023 30 Pharmac y Data Transac tion Service Facilit y IMATINIB MESYLATE (imatinib mesylate), 400 MG, TABLET, ORAL, [employer] 30 ea. BOTTLE Active [id number] 4 2023 30 Pharmac y Data Transac tion Service Facilit y IMATINIB MESYLATE (imatinib mesylate), 400 MG, TABLET, ORAL, Am[employer] PHARMA, 30 ea. BOTTLE Active [id number] 4 2023 30 Pharmac y Data Transac tion Service Facilit y IMATINIB MESYLATE (imatinib mesylate), 400 MG, TABLET, ORAL, Track PHARMA GLOB, 30 ea. BOTTLE Active [id number] 4 2023 30 Pharmac y Data Transac tion Service Facilit y IMATINIB MESYLATE (imatinib mesylate), 400 MG, TABLET, ORAL, SUN PHARMA GLOB, 30 ea. BOTTLE Active [id number] 4 2023 30 Pharmac y Data Transac tion Service Facilit y SILDENAFIL CITRATE (sildenafil citrate), 50 MG, TABLET, ORAL, EXELAN PHARMACE, 100 ea. BOTTLE Active [id number] 4 2023 15 Pharmac y Data Transac tion Service Facilit y Procedures Combined list of: 1) [facility] not all [place] non-surgical procedures are included; 2) All procedures from the Department of Defense facilities. Procedure Procedure Type Code Date Perfomer Comments Alysa harmon CARDIOVASCULAR STRESS TEST USING TREADMILL 10/18/1990 [facility] VIDEO & RADIO-TELEMETERED EE G MONITORING 10/18/1990 [facility] Social History Combined list of available smoking, tobacco, and other social history from Department of Defense and Veterans Affairs facilities. Social History Type Response Date Comment Alysa harmon This section is an empty social history section. [facility]
== END 2025-01-24 11:30 | disposition home or self-care (01) ==
PROVIDERS: PCP Internal Medicine; Visit Provider Internal Medicine
DX: J44.9 Chronic obstructive pulmonary disease, unspecified (principal); R09.02 Hypoxemia; Z99.81 Dependence on supplemental oxygen; J30.9 Allergic rhinitis, unspecified; C16.9 Malignant neoplasm of stomach, unspecified
CPT/HCPCS: 99213

== ENCOUNTER → 2025-01-24 10:48 | Outpatient (BNVA) | payer MEDICARE, OTHER, SELFPAY | PROVIDERS: PCP Internal Medicine; Visit Provider Internal Medicine | DX: J44.9 Chronic obstructive pulmonary disease, unspecified (principal); J30.9 Allergic rhinitis, unspecified; R09.02 Hypoxemia; C16.9 Malignant neoplasm of stomach, unspecified; Z99.81 Dependence on supplemental oxygen | CPT/HCPCS: 99212 ==

== ENCOUNTER 2025-07-27 09:44 | Outpatient (AMB) | payer MEDICARE, OTHER, SELFPAY ==
[2025-07-27 09:48] VITALS: BP 120/60; PULSE 73; O2SAT 91; BMI 24.5
--- NOTE | 2025-07-27 09:48 | A.OFFVIS_ITS ---
Vital Signs 07/27/25 09:48 Height 5 ft 10 in Weight 170 lb 13.732 oz BMI 24.5 BP 120/60 Blood Pressure Location Lt brachial Position Sitting Pulse 73 Pulse Source Pulse Oximeter Pulse Oximetry (%) 91 L Oxygen Delivery Method Nasal Cannula Oxygen Flow Rate 3 Intake Visit Reasons: COPD Intake Note: pt is here for follow up and states my breathing is very bad all summer, he does have help around the house. Clinical Dietetic Technician Required: No Allergies No Known Allergies Allergy (Mild, Verified 07/27/25 10:08) NOT APPLICABLE Medication List - Last Reconciled 07/27/25 by Michael Mcqueen MD atenolol 100 mg PO BEDTIME atorvastatin 20 mg PO BEDTIME fluticasone propion-salmeterol 230-21 mcg/actuation (Advair HFA) 2 puffs inhalation BID imatinib 400 mg PO DAILY ipratropium-albuterol 20-100 mcg/actuation (Combivent Respimat) 1 puff inhalation QID lisinopril-hydrochlorothiazide 20-25 mg 1 tab PO DAILY omeprazole 20 mg PO BID sildenafil 50 mg PO DAILY PRN tiotropium bromide 2.5 mcg/actuation (Spiriva Respimat) 2 puffs inhalation QAM Do you need a note to return to daycare/school/sports/work: No HPI HPI COPD: Details: Sergio is here for follow-up after 6 months. In addition to advanced COPD, Sergio is also being treated for prostate cancer and gastric cancer, with imatinib 400 mg daily. His last CT scan of the chest and abdomen in January 2025 did not show any significant changes though he does have multiple pulmonary nodules on both sides. Today he claims that his winter has been rough with increased chest congestion and frequent bouts of cough, Also had to increase his O2 flow to 4 L/minute quite frequently. At times it is difficult for him to bring up the phlegm. However he has had no acute respiratory infection. [facility] Medical History Allergic rhinitis Carcinoma of stomach Acute bronchitis and bronchiolitis Myocardial infarct Hypoxemia requiring supplemental oxygen COPD (chronic obstructive pulmonary disease) Surgical History History of appendectomy Social History Household Members: Spouse Housing: House Do you presently have visiting nurse or other home services: No Comment: [facility] Patient Tobacco Use Status: Former Tobacco user service: Yes Current occupational status: retired Review of Systems Const All systems reviewed & are unremarkable except as noted in HPI and below Eyes Reports no additional complaints ENT Reports no additional complaints Card Denies chest pain, Denies irregular heart rhythm and Reports leg edema (Since on prednisone) Resp Reports as per HPI GI Reports no additional complaints Reports no additional complaints Musc Reports no additional complaints Skin/Breast Reports system reviewed and no additional complaints, except as documented Neuro Reports no additional complaints Psych Reports no additional complaints Physical Exam Vital Signs: Last Vital Signs Pulse 73 07/27/25 09:48 BP 120/60 07/27/25 09:48 Pulse Ox 91 L 07/27/25 09:48 Oxygen Delivery Method Nasal Cannula 07/27/25 09:48 Oxygen Flow Rate 3 07/27/25 09:48 BMI result Body Mass Index 24.5 Const General: comfortable, no acute distress, alert and awake Orientation/consciousness: patient oriented x3 HEENT Head: Yes normal to inspection General nose exam: No nasal polyps present and No nasal discharge present Face and sinus: Yes sinuses nontender Mouth: oropharynx normal Throat: Yes posterior oropharynx normal Eyes General: appearance normal, both eyes and all related structures Neck Neck: Yes normal visual inspection, Yes no lymphadenopathy, Yes trachea midline and Yes no JVD Thyroid: Thyroid normal Chest Chest palpation & inspection: normal inspection of the chest, normal palpation of entire chest wall and no tenderness Resp Other: Percussion note is hyper-resonant, breath sounds are equal on both sides slightly prolonged expiratory phase. No audible wheezes ,or crepitations . Cardio Palpation: normal PMI Rate: regular rate Rhythm: regular rhythm Heart sounds: no gallops and no murmurs Peripheral pulses: Peripheral pulses 2+ throughout GI Palpation (GI): Soft to palpation, nontender, No hepatosplenomegaly present and no masses Auscultation: normal bowel sounds Back/Spine/Pelvis Thoracic/Lumbar Spine: thoracic and lumbar spine normal to inspection Skin General skin exam: no rashes or lesions noted Neuro General: patient oriented x3 and no focal motor deficits Cranial nerves: Yes CN's II-XII intact bilaterally Extrem General: Yes normal to inspection, Yes no calf tenderness and Yes edema (CHRONIC EDEMA OF LEGS AND AROUND THE ANKLES ) Psych Appearance: grossly normal and well kempt Speech and movement: Normal speech and movement present Assessment & Plan Assessment & Plan (1) COPD (chronic obstructive pulmonary disease): Comment: COPD SEEMS TO BE QUITE STABLE, BUT HE DOES HAVE INCREASED COUGH WITH SOME MUCUS, AND ALSO HAS INTERMITTENTLY NEEDED TO INCREASE THE O2 FLOW. INCREASE SHORTNESS OF BREATH ON EXERTION IS DUE TO COMBINATION OF MULTIPLE FACTORS, INCLUDING GENERAL WEAKNESS. Code(s): J44.9 - Chronic obstructive pulmonary disease, unspecified Category: Medical Plan: ADVISED TO CONTINUE ADVAIR HFA 230-212 PUFFS B.I.D.. STARTED ON THE NEBULIZED USE OF IPRATROPIUM- ALBUTEROL SOLUTION Q 6 HOURS WHILE AWAKE. USE COMBIVENT RESPIMAT 1 INHALATION Q 4-6 HOURS P.R.N. ESPECIALLY WHEN OUTDOORS. NO NEED TO USE SPIRIVA RESPIMAT (2) Hypoxemia requiring supplemental oxygen: Comment: CHRONIC RESPIRATORY FAILURE WITH HYPOXEMIA , HE NEEDS O2, CONTINUOUSLY. NOTED ABOVE UNDER COPD, LATELY HE HAS REQUIRED TO INCREASE THE FLOW OFF OXYGEN TO 4 L/MINUTE WHEN HE WALKS AROUND. WHEN HE RESTS AT HOME HE CUTS DOWN THE FLOW TO 2 L/MINUTE. Code(s): R09.02 - Hypoxemia; Z99.81 - Dependence on supplemental oxygen Category: Medical Plan: CONTINUE OXYGEN 2 L/MINUTE AT REST AND MAY INCREASE TO 3 OR 4 L/MINUTE WHEN WALKING AROUND. (3) Allergic rhinitis: Comment: HE DOES HAVE MILD SYMPTOMS OF ALLERGIC RHINITIS, WORSE ,OFF AND ON, Code(s): J30.9 - Allergic rhinitis, unspecified Category: Medical Plan: OK TO USE OTC ANTIHISTAMINICS SUCH LORATADINE TYROSINE ONLY P.R.N. Medications: New ipratropium-albuterol 0.5 mg-3 mg(2.5 mg base)/3 mL 3 mL inhalation QID 360 mL 3RF COPD/COUGH 90 days J44.9 - Chronic obstructive pulmonary disease, unspecified, R09.02 - Hypoxemia, Z99.81 - Dependence on supplemental oxygen Coding Level of Care Code Est Pt Level 3 (13354) Diagnoses COPD (chronic obstructive pulmonary disease) J44.9 Hypoxemia requiring supplemental oxygen R09.02; Z99.81 Allergic rhinitis J30.9
== END 2025-07-27 10:19 | disposition home or self-care (01) ==
LOC: HO.HPS 09:45
PROVIDERS: PCP Internal Medicine; Visit Provider Internal Medicine
DX: J44.9 Chronic obstructive pulmonary disease, unspecified (principal); R09.02 Hypoxemia; Z99.81 Dependence on supplemental oxygen; J30.9 Allergic rhinitis, unspecified
CPT/HCPCS: 99213

== ENCOUNTER → 2025-07-27 09:44 | Outpatient (BNVA) | payer MEDICARE, OTHER, SELFPAY | PROVIDERS: PCP Internal Medicine; Visit Provider Internal Medicine | DX: J44.9 Chronic obstructive pulmonary disease, unspecified (principal); R09.02 Hypoxemia; Z99.81 Dependence on supplemental oxygen; J30.9 Allergic rhinitis, unspecified; Z87.891 Personal history of nicotine dependence | CPT/HCPCS: 99212 ==